=== PATIENT | female | born 1945 | race Caucasian/White ===

== ENCOUNTER → 2017-09-16 | Outpatient (CLI) | payer MEDICARE, OTHER | LOC: CARD 07:38 | PROVIDERS: ATTEND Internal Medicine Interventional Cardiology | DX: Z01.810 Encounter for preprocedural cardiovascular examination (principal); I10 Essential (primary) hypertension; E66.9 Obesity, unspecified; R06.02 Shortness of breath | CPT/HCPCS: 93306 ==

== ENCOUNTER → 2017-09-16 | Outpatient (CLI) | payer MEDICARE, OTHER ==
[~2017-09-16] MED LIST: REGADENOSON 0.4 MG/5 ML SYR (LEXISCAN) IV ONE
[2017-09-16] MEDS: CATHETER FLUSH 10 ML SYR IV PRN ×2 (08:06→09:35)
[2017-09-16 09:29] VITALS: BP 150/78
--- NOTE | 2017-09-16 22:04 | Cardiology Stress Test Report ---
Stress Test Report Type of NM Stress Test: Test Type: LEXISCAN 0.4MG/5ML Date of Procedure/Referring: Date of Procedure: Sep 16, 2017 PCP Keshawn Meehan MD Admitting Physician Sada Mata MD Indications: Shortness of breath, preoperative cardiovascular risk assessment Baseline Heart Rate: 60 Baseline Blood Pressure: Blood Pressure Systolic: 150 Blood Pressure Diastolic: 78 Baseline EKG: Baseline EKG: Sinus rhythm with occasional PACs. Summary: The patient was brought to the stress lab after informed consent was taken. Lexiscan stress test was performed according to the protocol. Low-grade exercise was performed. Baseline EKG showed sinus rhythm at 60 BPM. Blood pressure 150/78 mmHg. Maximum heart rate 111 BPM and blood pressure 165/68 mmHg. Patient did not have any chest pain, EKG changes or arrhythmias. 10.81 mCi of Myoview was given for rest imaging and 32.3 mCi of Myoview was given for stress imaging. Transient ischemic dilatation score 1.06. Ejection fraction 60 percent with normal wall motion. Normal perfusion during rest and stress imaging. Conclusion: Pharmacological stress test is negative for ischemia. Normal LV function with no wall motion abnormalities. Normal myocardial perfusion imaging. Keshawn MEEHAN MD Sep 16, 2017 10:04 pm
== END ==
LOC: CARD 07:36
PROVIDERS: ATTEND Internal Medicine Interventional Cardiology
DX: Z01.810 Encounter for preprocedural cardiovascular examination (principal); I10 Essential (primary) hypertension; E66.9 Obesity, unspecified; R06.02 Shortness of breath
CPT/HCPCS: 78452; 93017

== ENCOUNTER 2017-09-21 10:06 | Day surgery (SDC) | payer MEDICARE, OTHER ==
[~2017-09-21] VITALS: Ht 152.4 cm; Wt 64.0 kg
[2017-09-21] MEDS ORDERED: ceFAZolin 1 GM/NS 50 ML IVPB IV ONE ×2 (10:30)
[2017-09-21] MEDS ORDERED: CATHETER FLUSH 10 ML SYR IV PRN (10:30)
[2017-09-21] MEDS ORDERED: LACTATED RINGERS 1,000 ML IV PRN (10:56)
[2017-09-21] MEDS ORDERED: CITA20TA7 PO (10:57)
[2017-09-21] MEDS ORDERED: CLAR-19 PO (10:57)
[2017-09-21] MEDS ORDERED: CARV6.252 PO (10:57)
[2017-09-21] MEDS ORDERED: AMOX500T2 PO (10:57)
[2017-09-21] MEDS ORDERED: AMLO5TAB2 PO (10:57)
[2017-09-21] MEDS ORDERED: OMEP40CA36 PO (10:57)
[2017-09-21 10:59] VITALS: BP 137/66
[2017-09-21] MEDS ORDERED: FAMOTIDINE 20MG/2ML IV (PEPCID) IV ONE (11:00)
--- NOTE | 2017-09-21 11:32 | Progress Note-Pre Operative ---
Pre-Operative Progress Note H&P Reviewed The H&P was reviewed, patient examined and no changes noted. Date Seen by Provider: Sep 20, 2017 Time Seen by Provider: 16:10 Date H&P Reviewed: Sep 21, 2017 Time H&P Reviewed: 11:32 Pre-Operative Diagnosis: Rectal carcinoma KRISTAL SCHROEDER MD Sep 21, 2017 11:32 am
[2017-09-21] MEDS ORDERED: 0.9% SODIUM CHLORIDE PF INJ 20 ML VIAL ONE (12:27)
[2017-09-21] MEDS ORDERED: BUP/EPI 0.5% 1:200,000 (SENSORCAINE) 30 ML VIAL ONE (12:27)
[2017-09-21] MEDS ORDERED: HEParin (CENTRAL IV FLUSH) 500 UNIT/5 ML SYR ONE (12:27)
[2017-09-21] MEDS ORDERED: proPOfol 200 MG/20 ML (DIPRIVAN) VIAL IV ONE (13:27)
[2017-09-21] MEDS ORDERED: LIDOCAINE PF 2% 5 ML (XYLOCAINE) VIAL ONE (13:27)
[2017-09-21] MEDS ORDERED: SEVOFLURANE (ULTANE) 15 ML INHAL SOLN ONE ×2 (13:27→14:26)
[2017-09-21] MEDS ORDERED: fentaNYL INJECTION 100 MCG/2 ML AMP ONE (13:28)
[2017-09-21] MEDS ORDERED: DEXAMETHASONE 10 MG/ML (DECADRON) 1 ML VIAL ONE (13:30)
[2017-09-21] MEDS ORDERED: ONDANSETRON 4 MG/2 ML (SDV) Z0FRAN ONE (13:30)
--- NOTE | 2017-09-21 14:41 | Operative Report ---
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 In preparation for neoadjuvant chemoradiation, an Infuse-a- Port was felt to be appropriate. In addition, concomitant flexible sigmoidoscopy to assess the patency of the lumen prior to initiating therapy was felt to be reasonable. Informed consent was obtained after reviewing the procedures in detail. Description of the procedures: Vkskcr-e-Cuxh placement: She was placed supine on the operating table and general anesthesia induced. A gram of Ancef was administered intravenously as prophylaxis against wound infection. Sequential compression devices were placed around her legs, to minimize the risk of venous thrombosis. Her neck and upper chest were prepared and draped in the usual sterile manner. Right internal jugular vein was localized using a 12 MHz ultrasound probe and a floppy guidewire introduced into the heart under fluoroscopy a subcutaneous pocket was created over the infra-clavicular fossa and the virgen catheter brought into the neck, in a retrograde fashion. It was then advanced into the heart under fluoroscopy, using the peel-away sheath. The catheter was then pulled back to the superior vena cava under fluoroscopy and connected to the Oxzngd-o-Ekct, that had been primed with heparinized saline. I was able to aspirate and flush the system without any difficulty. The port was then secured to the pectoralis tissue using 2-0 Prolene sutures. The incision was then closed using 3-0 Vicryl for the subcutaneous tissue and 4-0 Vicryl for skin , in a subcuticular fashion. 0.5 percent Marcaine with epinephrine was infiltrated along the incision preemptively. A sterile dressing was then applied and we proceeded with flexible sigmoidoscopy. Flexible sigmoidoscopy: Digital rectal examination confirmed the tumor at the distal rectum. The proximal was sigmoscope was then introduced in the rectum and negotiated past the tumor to the mid sigmoid colon. The scope was then withdrawn slowly and a thorough examination performed The tumor extended from 9 cm from the anal verge up to 15 cm cephalad. It occupied three fourths of the circumference of the rectum and had an adequate lumen, facilitating the initiation of preoperative chemoradiation. Sigmoid diverticulosis was encountered as well. She tolerated the procedures well, was extubated in the operative room and taken to the recovery room in a stable condition. Findings of the Procedure see op report Allergies and Home Medications Allergies Coded Allergies: Sulfa (Sulfonamide Antibiotics) (Unverified Allergy, Severe, ANAPHYLAXIS, 09/21/17) PER PT Home Medications Amlodipine Besylate 5 Mg Tablet, 5 MG PO DAILY, (Reported) Amoxicillin 500 Mg Tablet, 500 MG PO BID, (Reported) Carvedilol 6.25 Mg Tablet, 6.25 MG PO HS, (Reported) Citalopram Hydrobromide 20 Mg Tablet, 20 MG PO DAILY, (Reported) Clarithromycin 500 Mg Tablet, 500 MG PO DAILY, (Reported) Omeprazole 40 Mg Capsule.dr, 40 MG PO DAILY, (Reported) KRISTAL SCHROEDER MD Sep 21, 2017 2:41 pm
--- NOTE | 2017-09-21 14:42 | Diagnostic Imaging Report ---
INDICATION: Groshong catheter placement. FINDINGS: Fluoroscopy was performed in the OR during performance of a Groshong catheter placement. 43 seconds of fluoroscopic time was utilized. Two images were obtained demonstrating a right Groshong catheter with tip overlying the SVC. IMPRESSION: Fluoroscopy for Groshong catheter placement. Dictated by: Dictated on workstation # [id number]
[2017-09-21] MEDS ORDERED: ACHD5005 PO (14:43)
--- NOTE | 2017-09-21 14:43 | Discharge Inst-Simple/Standard ---
Discharge Inst-Standard Discharge Medications New, Converted or Re-Newed RX: RX on Chart Patient Instructions/Follow Up Plan of Care/Instructions/FU: May use the port. Dressings off in 48 hours. To proceed with her oncology appointments, in preparation for preoperative chemoradiation Activity as Tolerated: Yes Discharge Diet: Soft Diet KRISTAL SCHROEDER MD Sep 21, 2017 2:43 pm
[2017-09-21] MEDS ORDERED: ONDANSETRON 4 MG/2 ML (SDV) Z0FRAN IVP PRN (14:45)
[2017-09-21] MEDS ORDERED: morphine INJ 10 MG/ML 1ML (SYR OR VIAL) IVP PRN (14:45)
[2017-09-21 15:30] VITALS: BP 124/64
[2017-09-21 16:00] VITALS: BP 108/63
[2017-09-21] MEDS ORDERED: HYDROcodone/APAP 5 MG/325 MG (LORTAB) TAB PO ONE (16:15)
[2017-09-21 16:30] VITALS: BP 130/55
[2017-09-21 16:45] VITALS: BP 130/55
== END 2017-09-21 16:45 | disposition home or self-care (01) ==
LOC: SDC 10:06
PROVIDERS: ATTEND Surgery
DX: C20 Malignant neoplasm of rectum (principal); K57.30 Diverticulosis of large intestine without perforation or abscess without bleeding; I10 Essential (primary) hypertension; K21.9 Gastro-esophageal reflux disease without esophagitis; Z79.82 Long term (current) use of aspirin; Z79.899 Other long term (current) drug therapy
CPT/HCPCS: 87081

== ENCOUNTER → 2017-09-21 | Outpatient (CLI) | payer MEDICARE, OTHER ==
[~2017-09-21] MED LIST changes: +ACHD5005 PO; +AMLO5TAB2 PO; +AMOX500T2 PO; +CARV6.252 PO; +CITA20TA7 PO; +CLAR-19 PO; +OMEP40CA36 PO; -REGADENOSON 0.4 MG/5 ML SYR (LEXISCAN) IV ONE
--- NOTE | 2017-09-21 14:06 | Diagnostic Imaging Report ---
INDICATION: Rectal carcinoma, initial staging. Patient's blood serum glucose level is 121 mg/dL at time of injection. The patient was administered 13.5 mCi of F-18 FDG intravenously in the right antecubital region and PET imaging was performed. In addition, noncontrast CT was performed for the purpose of anatomic correlation and attenuation correction. No prior studies are available for comparison. There is symmetric uptake of activity throughout the brain. No focal hypermetabolism is identified. Soft tissues of the neck are unremarkable. There is normal symmetric activity within the vocal cords. Imaging through the chest is without evidence of mediastinal or hilar hypermetabolism. There is activity within left rotator cuff musculature, likely physiologic. Imaging through the abdomen is without evidence of hypermetabolic focus. There is physiologic activity within the liver and spleen and bilateral urinary tracts. There is a physiologic GI tract activity. There is some activity in the left psoas musculature. Imaging through the pelvis does show intense hypermetabolism in the midline of the low pelvis, likely representing the patient's known rectal mass. This has SUV max of approximately 20. No definite perirectal foci of hypermetabolism are seen. The pelvic sidewalls are unremarkable. No iliac or inguinal hypermetabolism is seen. IMPRESSION: Intense FDG avidity in the known rectal mass, correlating with patient's known rectal carcinoma. No definite abdominal or pelvic metastatic disease is detected. No other significant abnormalities are seen. Dictated by: Dictated on workstation # [id number]
== END ==
LOC: RAD 08:00
PROVIDERS: ATTEND Surgery
DX: C20 Malignant neoplasm of rectum (principal)

== ENCOUNTER 2017-11-30 14:51 | Outpatient (RCR) | payer MEDICARE, OTHER ==
[2017-09-23 10:45] LABS: BASOPHILS % (AUTO) 0 % (0-10); EOSINOPHILS % (AUTO) 0 % (0-10); HEMATOCRIT 36 % (35-52); LYMPHOCYTES # (AUTO) 1.8 X 10^3 (1.0-4.0); LYMPHOCYTES % (AUTO) 13 % (12-44); MEAN CORPUSCULAR HEMOGLOBIN 31 PG (25-34); MEAN CORPUSCULAR HGB CONC 33 G/DL (32-36); MEAN CORPUSCULAR VOLUME 92 FL (80-99); MEAN PLATELET VOLUME 10.9 FL (7.4-10.4); MONOCYTES # (AUTO) 1.2 X 10^3 (0.0-1.0); MONOCYTES % (AUTO) 9 % (0-12); NEUTROPHILS # (AUTO) 10.9 X 10^3 (1.8-7.8); NEUTROPHILS % (AUTO) 78 % (42-75); PLATELET COUNT 290 10^3/uL (130-400); RED BLOOD COUNT 3.93 10^6/uL (4.35-5.85); RED CELL DISTRIBUTION WIDTH 13.4 % (10.0-14.5)
[2017-09-23 11:03] LABS: ALANINE AMINOTRANSFERASE 12 U/L (0-55); ALBUMIN 4.1 GM/DL (3.2-4.5); ALKALINE PHOSPHATASE 79 U/L (40-136); BILIRUBIN,TOTAL 0.5 MG/DL (0.1-1.0); BUN/CREATININE RATIO 18; CALCIUM 9.1 MG/DL (8.5-10.1); CARBON DIOXIDE 26 MMOL/L (21-32); CHLORIDE 105 MMOL/L (98-107); CREATININE SERUM 0.78 MG/DL (0.60-1.30); GFR ESTIMATED > 60; GLUCOSE 95 MG/DL (70-105); POTASSIUM 4.5 MMOL/L (3.6-5.0); SODIUM 141 MMOL/L (135-145); TOTAL PROTEIN 7.1 GM/DL (6.4-8.2)
[2017-10-11 15:29] LABS: BASOPHILS % (AUTO) 0 % (0-10); EOSINOPHILS # (AUTO) 0.1 10^3/uL (0.0-0.3); EOSINOPHILS % (AUTO) 3 % (0-10); HEMATOCRIT 36 % (35-52); HEMOGLOBIN 11.5 G/DL (11.5-16.0); LYMPHOCYTES # (AUTO) 1.3 X 10^3 (1.0-4.0); LYMPHOCYTES % (AUTO) 29 % (12-44); MEAN CORPUSCULAR HEMOGLOBIN 30 PG (25-34); MEAN CORPUSCULAR HGB CONC 32 G/DL (32-36); MEAN CORPUSCULAR VOLUME 92 FL (80-99); MEAN PLATELET VOLUME 9.3 FL (7.4-10.4); MONOCYTES # (AUTO) 0.4 X 10^3 (0.0-1.0); MONOCYTES % (AUTO) 10 % (0-12); NEUTROPHILS # (AUTO) 2.6 X 10^3 (1.8-7.8); NEUTROPHILS % (AUTO) 58 % (42-75); PLATELET COUNT 426 10^3/uL (130-400); RED BLOOD COUNT 3.88 10^6/uL (4.35-5.85); RED CELL DISTRIBUTION WIDTH 13.1 % (10.0-14.5); WHITE BLOOD COUNT 4.5 10^3/uL (4.3-11.0)
[2017-10-11 15:44] LABS: BUN/CREATININE RATIO 24; CALCIUM 8.5 MG/DL (8.5-10.1); CARBON DIOXIDE 23 MMOL/L (21-32); CHLORIDE 110 MMOL/L (98-107); CREATININE SERUM 0.67 MG/DL (0.60-1.30); GFR ESTIMATED > 60; GLUCOSE 80 MG/DL (70-105); POTASSIUM 3.9 MMOL/L (3.6-5.0); SODIUM 140 MMOL/L (135-145)
[2017-10-18 15:37] LABS: BASOPHILS % (AUTO) 0 % (0-10); EOSINOPHILS % (AUTO) 1 % (0-10); HEMATOCRIT 34 % (35-52); HEMOGLOBIN 11.4 G/DL (11.5-16.0); LYMPHOCYTES # (AUTO) 0.9 X 10^3 (1.0-4.0); LYMPHOCYTES % (AUTO) 22 % (12-44); MEAN CORPUSCULAR HEMOGLOBIN 30 PG (25-34); MEAN CORPUSCULAR HGB CONC 33 G/DL (32-36); MEAN CORPUSCULAR VOLUME 92 FL (80-99); MEAN PLATELET VOLUME 9.1 FL (7.4-10.4); MONOCYTES # (AUTO) 0.5 X 10^3 (0.0-1.0); MONOCYTES % (AUTO) 13 % (0-12); NEUTROPHILS # (AUTO) 2.6 X 10^3 (1.8-7.8); NEUTROPHILS % (AUTO) 64 % (42-75); PLATELET COUNT 241 10^3/uL (130-400); RED BLOOD COUNT 3.75 10^6/uL (4.35-5.85); WHITE BLOOD COUNT 4.1 10^3/uL (4.3-11.0)
[2017-10-18 15:54] LABS: BUN/CREATININE RATIO 22; CALCIUM 8.7 MG/DL (8.5-10.1); CARBON DIOXIDE 25 MMOL/L (21-32); CHLORIDE 108 MMOL/L (98-107); CREATININE SERUM 0.67 MG/DL (0.60-1.30); GFR ESTIMATED > 60; GLUCOSE 82 MG/DL (70-105); SODIUM 140 MMOL/L (135-145)
[2017-10-25 14:00] LABS: BASOPHILS % (AUTO) 0 % (0-10); EOSINOPHILS # (AUTO) 0.3 10^3/uL (0.0-0.3); EOSINOPHILS % (AUTO) 7 % (0-10); HEMATOCRIT 35 % (35-52); HEMOGLOBIN 12.1 G/DL (11.5-16.0); LYMPHOCYTES # (AUTO) 0.7 X 10^3 (1.0-4.0); LYMPHOCYTES % (AUTO) 16 % (12-44); MEAN CORPUSCULAR HEMOGLOBIN 31 PG (25-34); MEAN CORPUSCULAR HGB CONC 34 G/DL (32-36); MEAN CORPUSCULAR VOLUME 91 FL (80-99); MEAN PLATELET VOLUME 10.2 FL (7.4-10.4); MONOCYTES # (AUTO) 0.5 X 10^3 (0.0-1.0); MONOCYTES % (AUTO) 12 % (0-12); NEUTROPHILS # (AUTO) 2.8 X 10^3 (1.8-7.8); NEUTROPHILS % (AUTO) 65 % (42-75); PLATELET COUNT 184 10^3/uL (130-400); RED BLOOD COUNT 3.89 10^6/uL (4.35-5.85); RED CELL DISTRIBUTION WIDTH 15.4 % (10.0-14.5); WHITE BLOOD COUNT 4.3 10^3/uL (4.3-11.0)
[2017-10-25 14:17] LABS: ALANINE AMINOTRANSFERASE 14 U/L (0-55); ALBUMIN 3.6 GM/DL (3.2-4.5); ALKALINE PHOSPHATASE 105 U/L (40-136); BILIRUBIN,TOTAL 0.3 MG/DL (0.1-1.0); BUN/CREATININE RATIO 14; CALCIUM 8.7 MG/DL (8.5-10.1); CARBON DIOXIDE 26 MMOL/L (21-32); CHLORIDE 108 MMOL/L (98-107); CREATININE SERUM 0.69 MG/DL (0.60-1.30); GFR ESTIMATED > 60; GLUCOSE 84 MG/DL (70-105); MAGNESIUM 2.6 MG/DL (1.8-2.4); POTASSIUM 4.4 MMOL/L (3.6-5.0); SODIUM 140 MMOL/L (135-145); TOTAL PROTEIN 6.6 GM/DL (6.4-8.2)
[2017-11-09 14:11] LABS: BASOPHILS % (AUTO) 0 % (0-10); EOSINOPHILS # (AUTO) 0.2 10^3/uL (0.0-0.3); EOSINOPHILS % (AUTO) 6 % (0-10); HEMATOCRIT 36 % (35-52); LYMPHOCYTES # (AUTO) 0.6 X 10^3 (1.0-4.0); LYMPHOCYTES % (AUTO) 16 % (12-44); MEAN CORPUSCULAR HEMOGLOBIN 31 PG (25-34); MEAN CORPUSCULAR HGB CONC 33 G/DL (32-36); MEAN CORPUSCULAR VOLUME 92 FL (80-99); MEAN PLATELET VOLUME 8.9 FL (7.4-10.4); MONOCYTES # (AUTO) 0.6 X 10^3 (0.0-1.0); MONOCYTES % (AUTO) 15 % (0-12); NEUTROPHILS # (AUTO) 2.5 X 10^3 (1.8-7.8); NEUTROPHILS % (AUTO) 63 % (42-75); PLATELET COUNT 289 10^3/uL (130-400); RED CELL DISTRIBUTION WIDTH 15.9 % (10.0-14.5)
[2017-11-09 14:39] LABS: ALANINE AMINOTRANSFERASE 9 U/L (0-55); ALBUMIN 3.9 GM/DL (3.2-4.5); ALKALINE PHOSPHATASE 86 U/L (40-136); BILIRUBIN,TOTAL 0.4 MG/DL (0.1-1.0); BUN/CREATININE RATIO 15; CARBON DIOXIDE 29 MMOL/L (21-32); CHLORIDE 107 MMOL/L (98-107); CREATININE SERUM 0.68 MG/DL (0.60-1.30); GFR ESTIMATED > 60; GLUCOSE 84 MG/DL (70-105); POTASSIUM 4.1 MMOL/L (3.6-5.0); SODIUM 140 MMOL/L (135-145); TOTAL PROTEIN 6.6 GM/DL (6.4-8.2)
[~2017-11-30 14:51] MED LIST changes: -CITA20TA7 PO; +CITA20TA9 PO
== END 2017-12-22 | disposition home or self-care (01) ==
LOC: ONC 14:51
PROVIDERS: ATTEND Internal Medicine Hematology & Oncology
DX: Z51.0 Encounter for antineoplastic radiation therapy (principal); C20 Malignant neoplasm of rectum; I10 Essential (primary) hypertension; G62.9 Polyneuropathy, unspecified; K29.70 Gastritis, unspecified, without bleeding; K44.9 Diaphragmatic hernia without obstruction or gangrene; M47.9 Spondylosis, unspecified; Z79.82 Long term (current) use of aspirin; Z79.899 Other long term (current) drug therapy
CPT/HCPCS: 36415; 77300; 77301; 77334; 77336; 77338; 77386; 77470; 80048; 80053; 82378; 83735; 85025; 87804; 96523; 99204; 99213; 99214

== ENCOUNTER 2018-01-03 13:49 | Outpatient (RCR) | payer MEDICARE, OTHER ==
[2018-01-20] MEDS ORDERED: CYCL10TA9 PO (10:30)
[2018-01-21] MEDS ORDERED: ACHD5005 PO (10:16)
[2018-01-21] MEDS ORDERED: ENOX30DI9 SQ (10:17)
[2018-02-07 15:36] LABS: BASOPHILS % (AUTO) 0 % (0-10); EOSINOPHILS # (AUTO) 0.2 10^3/uL (0.0-0.3); EOSINOPHILS % (AUTO) 3 % (0-10); HEMATOCRIT 28 % (35-52); HEMOGLOBIN 8.7 G/DL (11.5-16.0); LYMPHOCYTES % (AUTO) 17 % (12-44); MEAN CORPUSCULAR HEMOGLOBIN 29 PG (25-34); MEAN CORPUSCULAR HGB CONC 31 G/DL (32-36); MEAN CORPUSCULAR VOLUME 93 FL (80-99); MEAN PLATELET VOLUME 8.4 FL (7.4-10.4); MONOCYTES # (AUTO) 0.6 X 10^3 (0.0-1.0); MONOCYTES % (AUTO) 11 % (0-12); NEUTROPHILS # (AUTO) 3.9 X 10^3 (1.8-7.8); NEUTROPHILS % (AUTO) 69 % (42-75); PLATELET COUNT 487 10^3/uL (130-400); RED CELL DISTRIBUTION WIDTH 13.8 % (10.0-14.5); WHITE BLOOD COUNT 5.6 10^3/uL (4.3-11.0)
[2018-02-07 16:00] LABS: ALANINE AMINOTRANSFERASE 7 U/L (0-55); ALBUMIN 3.5 GM/DL (3.2-4.5); ALKALINE PHOSPHATASE 87 U/L (40-136); BILIRUBIN,TOTAL 0.2 MG/DL (0.1-1.0); BUN/CREATININE RATIO 25; CALCIUM 8.8 MG/DL (8.5-10.1); CARBON DIOXIDE 25 MMOL/L (21-32); CHLORIDE 105 MMOL/L (98-107); CREATININE SERUM 0.72 MG/DL (0.60-1.30); GFR ESTIMATED > 60; GLUCOSE 113 MG/DL (70-105); POTASSIUM 3.8 MMOL/L (3.6-5.0); SODIUM 138 MMOL/L (135-145); TOTAL PROTEIN 6.2 GM/DL (6.4-8.2)
== END 2018-02-07 14:51 | disposition home or self-care (01) ==
LOC: ONC 13:49
PROVIDERS: ATTEND Internal Medicine Hematology & Oncology
DX: C20 Malignant neoplasm of rectum (principal); I10 Essential (primary) hypertension; G62.9 Polyneuropathy, unspecified; K29.70 Gastritis, unspecified, without bleeding; K44.9 Diaphragmatic hernia without obstruction or gangrene; M47.9 Spondylosis, unspecified; Z79.82 Long term (current) use of aspirin; Z79.899 Other long term (current) drug therapy; Z45.2 Encounter for adjustment and management of vascular access device
CPT/HCPCS: 80053; 85025; 85027; 96523

== ENCOUNTER 2018-01-12 05:31 | Outpatient (CLI) | payer MEDICARE, OTHER ==
[~2018-01-12] VITALS: Ht 152.4 cm; Wt 64.0 kg
[2018-01-21] MEDS ORDERED: ACHD5005 PO (10:16)
[2018-01-21] MEDS ORDERED: ENOX30DI9 SQ (10:17)
== END 2018-01-12 12:40 ==
LOC: PREOP 05:31
PROVIDERS: ATTEND Surgery
DX: Z01.818 Encounter for other preprocedural examination (principal); C20 Malignant neoplasm of rectum

== ENCOUNTER 2018-02-07 14:53 | Outpatient (RCR) | payer MEDICARE, OTHER ==
[~2018-02-07 14:53] MED LIST changes: +CYCL10TA9 PO; +ENOX30DI9 SQ
[2018-03-01 14:24] LABS: BASOPHILS % (AUTO) 0 % (0-10); EOSINOPHILS # (AUTO) 0.2 10^3/uL (0.0-0.3); EOSINOPHILS % (AUTO) 4 % (0-10); HEMATOCRIT 31 % (35-52); HEMOGLOBIN 9.8 G/DL (11.5-16.0); LYMPHOCYTES % (AUTO) 17 % (12-44); MEAN CORPUSCULAR HEMOGLOBIN 28 PG (25-34); MEAN CORPUSCULAR HGB CONC 32 G/DL (32-36); MEAN CORPUSCULAR VOLUME 88 FL (80-99); MONOCYTES # (AUTO) 0.6 X 10^3 (0.0-1.0); MONOCYTES % (AUTO) 10 % (0-12); NEUTROPHILS # (AUTO) 3.9 X 10^3 (1.8-7.8); NEUTROPHILS % (AUTO) 68 % (42-75); PLATELET COUNT 438 10^3/uL (130-400); RED BLOOD COUNT 3.51 10^6/uL (4.35-5.85); WHITE BLOOD COUNT 5.7 10^3/uL (4.3-11.0)
[2018-03-01 14:52] LABS: ALANINE AMINOTRANSFERASE 8 U/L (0-55); ALBUMIN 3.7 GM/DL (3.2-4.5); ALKALINE PHOSPHATASE 108 U/L (40-136); BILIRUBIN,TOTAL 0.2 MG/DL (0.1-1.0); BUN/CREATININE RATIO 16; CALCIUM 9.2 MG/DL (8.5-10.1); CARBON DIOXIDE 24 MMOL/L (21-32); CHLORIDE 108 MMOL/L (98-107); CREATININE SERUM 0.89 MG/DL (0.60-1.30); GFR ESTIMATED > 60; GLUCOSE 101 MG/DL (70-105); POTASSIUM 3.8 MMOL/L (3.6-5.0); SODIUM 141 MMOL/L (135-145); TOTAL PROTEIN 6.6 GM/DL (6.4-8.2)
== END 2018-03-01 14:01 | disposition home or self-care (01) ==
LOC: ONC 14:53
PROVIDERS: ATTEND Internal Medicine Hematology & Oncology
DX: C20 Malignant neoplasm of rectum (principal); I10 Essential (primary) hypertension; G62.9 Polyneuropathy, unspecified; K29.70 Gastritis, unspecified, without bleeding; K44.9 Diaphragmatic hernia without obstruction or gangrene; M47.9 Spondylosis, unspecified; Z79.82 Long term (current) use of aspirin; Z79.899 Other long term (current) drug therapy
CPT/HCPCS: 36415; 36591; 80053; 82378; 85025

== ENCOUNTER 2018-04-14 14:24 | Outpatient (RCR) | payer MEDICARE, OTHER ==
[2018-03-22 09:27] LABS: BASOPHILS % (AUTO) 0 % (0-10); EOSINOPHILS # (AUTO) 0.1 10^3/uL (0.0-0.3); EOSINOPHILS % (AUTO) 3 % (0-10); HEMATOCRIT 28 % (35-52); HEMOGLOBIN 9.1 G/DL (11.5-16.0); LYMPHOCYTES # (AUTO) 0.6 X 10^3 (1.0-4.0); LYMPHOCYTES % (AUTO) 14 % (12-44); MEAN CORPUSCULAR HEMOGLOBIN 28 PG (25-34); MEAN CORPUSCULAR HGB CONC 32 G/DL (32-36); MEAN CORPUSCULAR VOLUME 88 FL (80-99); MEAN PLATELET VOLUME 8.9 FL (7.4-10.4); MONOCYTES # (AUTO) 0.5 X 10^3 (0.0-1.0); MONOCYTES % (AUTO) 10 % (0-12); NEUTROPHILS # (AUTO) 3.4 X 10^3 (1.8-7.8); NEUTROPHILS % (AUTO) 73 % (42-75); PLATELET COUNT 332 10^3/uL (130-400); RED BLOOD COUNT 3.23 10^6/uL (4.35-5.85); RED CELL DISTRIBUTION WIDTH 16.2 % (10.0-14.5); WHITE BLOOD COUNT 4.6 10^3/uL (4.3-11.0)
[~2018-04-14 14:24] MED LIST changes: -AMLO5TAB2 PO; +AMLO5TAB7 PO
[2018-04-14 14:53] LABS: BASOPHILS % (AUTO) 0 % (0-10); EOSINOPHILS # (AUTO) 0.1 10^3/uL (0.0-0.3); EOSINOPHILS % (AUTO) 3 % (0-10); HEMATOCRIT 29 % (35-52); HEMOGLOBIN 9.2 G/DL (11.5-16.0); LYMPHOCYTES # (AUTO) 0.9 X 10^3 (1.0-4.0); LYMPHOCYTES % (AUTO) 22 % (12-44); MEAN CORPUSCULAR HGB CONC 32 G/DL (32-36); MEAN CORPUSCULAR VOLUME 88 FL (80-99); MEAN PLATELET VOLUME 9.1 FL (7.4-10.4); MONOCYTES # (AUTO) 0.5 X 10^3 (0.0-1.0); MONOCYTES % (AUTO) 12 % (0-12); NEUTROPHILS # (AUTO) 2.7 X 10^3 (1.8-7.8); NEUTROPHILS % (AUTO) 64 % (42-75); PLATELET COUNT 296 10^3/uL (130-400); RED BLOOD COUNT 3.23 10^6/uL (4.35-5.85); RED CELL DISTRIBUTION WIDTH 20.1 % (10.0-14.5); WHITE BLOOD COUNT 4.2 10^3/uL (4.3-11.0)
[2018-04-14 14:54] LABS: MEAN CORPUSCULAR HEMOGLOBIN 28 PG (25-34)
[2018-04-14 15:22] LABS: ALANINE AMINOTRANSFERASE 6 U/L (0-55); ALBUMIN 3.8 GM/DL (3.2-4.5); ALKALINE PHOSPHATASE 98 U/L (40-136); BILIRUBIN,TOTAL 0.4 MG/DL (0.1-1.0); BUN/CREATININE RATIO 18; CALCIUM 8.8 MG/DL (8.5-10.1); CARBON DIOXIDE 23 MMOL/L (21-32); CHLORIDE 105 MMOL/L (98-107); CREATININE SERUM 0.83 MG/DL (0.60-1.30); GFR ESTIMATED > 60; GLUCOSE 105 MG/DL (70-105); POTASSIUM 3.7 MMOL/L (3.6-5.0); SODIUM 137 MMOL/L (135-145); TOTAL PROTEIN 6.1 GM/DL (6.4-8.2)
[2018-05-05 13:56] LABS: BASOPHILS % (AUTO) 0 % (0-10); EOSINOPHILS # (AUTO) 0.1 10^3/uL (0.0-0.3); EOSINOPHILS % (AUTO) 3 % (0-10); HEMATOCRIT 30 % (35-52); HEMOGLOBIN 9.8 G/DL (11.5-16.0); LYMPHOCYTES # (AUTO) 0.8 X 10^3 (1.0-4.0); LYMPHOCYTES % (AUTO) 18 % (12-44); MEAN CORPUSCULAR HEMOGLOBIN 29 PG (25-34); MEAN CORPUSCULAR HGB CONC 33 G/DL (32-36); MEAN CORPUSCULAR VOLUME 89 FL (80-99); MEAN PLATELET VOLUME 8.8 FL (7.4-10.4); MONOCYTES # (AUTO) 0.6 X 10^3 (0.0-1.0); MONOCYTES % (AUTO) 14 % (0-12); NEUTROPHILS # (AUTO) 2.6 X 10^3 (1.8-7.8); NEUTROPHILS % (AUTO) 65 % (42-75); PLATELET COUNT 253 10^3/uL (130-400); RED BLOOD COUNT 3.33 10^6/uL (4.35-5.85); RED CELL DISTRIBUTION WIDTH 23.2 % (10.0-14.5); WHITE BLOOD COUNT 4.1 10^3/uL (4.3-11.0)
[2018-05-05 14:17] LABS: ALBUMIN 3.9 GM/DL (3.2-4.5); BILIRUBIN,TOTAL 0.5 MG/DL (0.1-1.0); CALCIUM 8.9 MG/DL (8.5-10.1); CREATININE SERUM 1.07 MG/DL (0.60-1.30); POTASSIUM 3.7 MMOL/L (3.6-5.0); TOTAL PROTEIN 6.7 GM/DL (6.4-8.2)
== END 2018-05-05 13:32 | disposition home or self-care (01) ==
LOC: ONC 14:24
PROVIDERS: ATTEND Internal Medicine Hematology & Oncology
DX: C20 Malignant neoplasm of rectum (principal); I10 Essential (primary) hypertension; I95.9 Hypotension, unspecified; R42 Dizziness and giddiness; G62.9 Polyneuropathy, unspecified; K29.70 Gastritis, unspecified, without bleeding; K44.9 Diaphragmatic hernia without obstruction or gangrene; M47.9 Spondylosis, unspecified; Z79.82 Long term (current) use of aspirin; Z79.899 Other long term (current) drug therapy; Z93.3 Colostomy status
CPT/HCPCS: 36415; 80053; 82378; 85025; 99213

== ENCOUNTER → 2018-05-10 | Outpatient (CLI) | payer MEDICARE, OTHER ==
--- NOTE | 2018-05-12 11:18 | Diagnostic Imaging Report ---
EXAM: PET/CT INDICATION: Rectal carcinoma TECHNIQUE: PET/CT imaging was obtained from the base of the skull through the pelvis after the administration of 13.7 mCi of F-[address] imaging was utilized for localization and attenuation correction purposes. The low energy CT utilized for attenuation correction is not considered to be of high enough spatial resolution to allow in and of itself a separate anatomical analysis. The previous PET/CT exam performed on 09/21/2017 noted intense FDG activity in the region of the patient's known rectal mass. There is no sign of metastatic disease, however. On this exam, the activity in the region of the rectum has diminished significantly. The maximum SUV in this area is now only 2.2 as opposed to 20 on the prior study. In the interval since the prior exam, a focal area of increased hypermetabolic activity has developed in the right lung base. However, the CT images fail to show any sign of a parenchymal mass in this area. The reason for the abnormal uptake is unclear. It is possible that this abnormal uptake could herald the development of a parenchymal mass and I do feel metastatic disease should certainly be considered. A short-term (4-6 week) followup CT chest exam would be recommended for further evaluation. There is no other hypermetabolic activity seen to suggest the presence of malignancy. The CT images fail to show any sign of an acute abnormality. There is cholelithiasis without evidence for acute cholecystitis. Also, in the interval since the prior exam, the patient has undergone resection of the rectal tumor and there is now an ostomy site in place near midline. IMPRESSION: 1. There are mixed results. The hypermetabolic activity in the region of the rectum has essentially resolved following the patient's interval colon resection. However, a new focus of abnormal activity has developed in the right lung base. There is no corresponding parenchymal lung mass identified in this region on the CT images, however. Recommendations as above. 2. The overall appearance of the PET/CT exam is otherwise stable. 3. These results were discussed with Dr. Cox. Dictated by: Dictated on workstation # [id number]
== END ==
LOC: RAD 08:24
PROVIDERS: ATTEND Internal Medicine Hematology & Oncology
DX: C20 Malignant neoplasm of rectum (principal); R97.0 Elevated carcinoembryonic antigen [CEA]

== ENCOUNTER → 2018-07-14 | Outpatient (CLI) | payer MEDICARE, OTHER ==
[~2018-07-14] MED LIST changes: +BARIUM SUSPENSION 2.1% (VANILLA SILQ) 450 ML PO ONE; +CATHETER FLUSH 10 ML SYR IV PRN; +IOHEXOL 350 MG/ML 100 ML (OMNIPAQUE 350) VIAL IV ONE; +NS 100 ML (IVPB) BAG IV ONE; +RECEIVED CONTRAST (Hold Metformin) IV SCH
--- NOTE | 2018-07-14 13:12 | Diagnostic Imaging Report ---
PROCEDURE: CT chest, abdomen, and pelvis with contrast. TECHNIQUE: Multiple contiguous axial images were obtained through the chest, abdomen, and pelvis after the administration of intravenous contrast. INDICATION: Colon cancer. Increased tumor markers. This is for restaging. COMPARISON: Exam interpreted in correlation with CT fusion PET dated 05/10/2018. CHEST: There is no evidence for lung mass. In particular at the level of the right lung base, no focal pulmonary parenchymal lesion is present to account for the area of hypermetabolism alerted to at previous PET. This will be discussed further in the abdominal section however that uptake is believed to have reflected incidental misregistration from a solid mass in the right hepatic lobe at the dome posteriorly likely hepatic metastasis. Again no suspicious lung nodule and no thoracic lymphadenopathy. No chest effusion. The aorta is nonaneurysmal. There is no acute soft tissue or osseous chest wall disease. ABDOMEN AND PELVIS: There is a low density but solid mass in the right hepatic lobe at the dome posteriorly measuring 1.6 cm believed to account for the area of abnormal uptake projecting at the level of the patient's right lower lung. That itself believed to be owing to misregistration artifact. This is presumed a hepatic metastatic lesion. A second minute right lobe lesion inferiorly is 3 mm and is indeterminate. That focus was metabolically imperceptible on PET and is of uncertain significance. The remaining liver is unremarkable. There is no bile duct dilatation. Spleen, adrenals and pancreas are unremarkable. There is a gallstone without cholecystitis. Left lower quadrant diverting ostomy without parastomal hernia or complication. Some fluid containing bowel loops pre-sacral in the pelvis with some presacral edema and infiltration on an expected postoperative basis. Pelvic sidewalls unremarkable and no ilioinguinal lymphadenopathy is apparent. There is no abscess, obstruction or hematoma. There is no pathological appearing abdominopelvic, mesenteric or retroperitoneal lymph nodes. The osseous structures nonacute. IMPRESSION: CHEST: No evidence for thoracic metastasis. ABDOMEN: Metabolically active mass in the right hepatic lobe at the dome posteriorly presumptively metastatic. Second tiny 3 mm right lobe liver lesion is more indeterminate and may be a tiny cyst. Cholelithiasis. Abdomen otherwise normal. PELVIS: Postsurgical changes to the rectum. Commonly encountered presacral induration on a post-therapeutic basis. No lymphadenopathy, fluid collection or obstructive phenomena. Dictated by: Dictated on workstation # [id number]
--- NOTE | 2018-07-14 17:43 | Diagnostic Imaging Report ---
INDICATION: Rectal cancer. TECHNIQUE: Whole body bone scan performed with 25.6 mCi of technetium 99m MDP given intravenously. COMPARISON: There is no prior bone scan for comparison. FINDINGS: There is increased uptake over both knee joints, compatible with degenerative change. There is some increased uptake over the midthoracic spine to the right of the midline, which could be degenerative change although metastatic disease is not entirely excluded. No other foci of abnormal activity are seen. Both kidneys excrete the tracer. IMPRESSION: Focal area of uptake over the midthoracic spine to the right of the midline, this is nonspecific and could represent metastatic disease or degenerative change. Consider MRI thoracic spine, if clinically warranted. There is increased uptake over both knees which is most likely degenerative in nature. There is no other significant abnormality. Dictated by: Dictated on workstation # [id number]
== END ==
LOC: CARD 11:38
PROVIDERS: ATTEND Internal Medicine Hematology & Oncology
DX: Z01.89 Encounter for other specified special examinations (principal); R97.0 Elevated carcinoembryonic antigen [CEA]; C20 Malignant neoplasm of rectum
CPT/HCPCS: 71260; 74177; 78306

== ENCOUNTER 2018-07-20 13:32 | Outpatient (RCR) | payer MEDICARE, OTHER ==
[2018-05-25 10:09] LABS: BASOPHILS % (AUTO) 1 % (0-10); EOSINOPHILS # (AUTO) 0.1 10^3/uL (0.0-0.3); EOSINOPHILS % (AUTO) 4 % (0-10); HEMATOCRIT 31 % (35-52); HEMOGLOBIN 10.1 G/DL (11.5-16.0); LYMPHOCYTES # (AUTO) 0.9 X 10^3 (1.0-4.0); LYMPHOCYTES % (AUTO) 22 % (12-44); MEAN CORPUSCULAR HEMOGLOBIN 30 PG (25-34); MEAN CORPUSCULAR HGB CONC 32 G/DL (32-36); MEAN CORPUSCULAR VOLUME 92 FL (80-99); MEAN PLATELET VOLUME 8.6 FL (7.4-10.4); MONOCYTES # (AUTO) 0.4 X 10^3 (0.0-1.0); MONOCYTES % (AUTO) 10 % (0-12); NEUTROPHILS # (AUTO) 2.5 X 10^3 (1.8-7.8); NEUTROPHILS % (AUTO) 64 % (42-75); PLATELET COUNT 304 10^3/uL (130-400); RED BLOOD COUNT 3.42 10^6/uL (4.35-5.85); RED CELL DISTRIBUTION WIDTH 25.5 % (10.0-14.5)
[2018-05-25 10:34] LABS: ALANINE AMINOTRANSFERASE 9 U/L (0-55); ALBUMIN 4.2 GM/DL (3.2-4.5); ALKALINE PHOSPHATASE 115 U/L (40-136); BILIRUBIN,TOTAL 0.9 MG/DL (0.1-1.0); BUN/CREATININE RATIO 16; CALCIUM 9.5 MG/DL (8.5-10.1); CARBON DIOXIDE 23 MMOL/L (21-32); CHLORIDE 105 MMOL/L (98-107); CREATININE SERUM 0.86 MG/DL (0.60-1.30); GFR ESTIMATED > 60; GLUCOSE 99 MG/DL (70-105); POTASSIUM 4.1 MMOL/L (3.6-5.0); SODIUM 140 MMOL/L (135-145); TOTAL PROTEIN 6.9 GM/DL (6.4-8.2)
[2018-06-15 10:11] LABS: BASOPHILS % (AUTO) 0 % (0-10); EOSINOPHILS # (AUTO) 0.1 10^3/uL (0.0-0.3); EOSINOPHILS % (AUTO) 3 % (0-10); HEMATOCRIT 31 % (35-52); LYMPHOCYTES # (AUTO) 0.8 X 10^3 (1.0-4.0); LYMPHOCYTES % (AUTO) 20 % (12-44); MEAN CORPUSCULAR HEMOGLOBIN 30 PG (25-34); MEAN CORPUSCULAR HGB CONC 32 G/DL (32-36); MEAN CORPUSCULAR VOLUME 95 FL (80-99); MONOCYTES # (AUTO) 0.4 X 10^3 (0.0-1.0); MONOCYTES % (AUTO) 11 % (0-12); NEUTROPHILS # (AUTO) 2.6 X 10^3 (1.8-7.8); NEUTROPHILS % (AUTO) 66 % (42-75); PLATELET COUNT 307 10^3/uL (130-400); RED BLOOD COUNT 3.31 10^6/uL (4.35-5.85); RED CELL DISTRIBUTION WIDTH 24.3 % (10.0-14.5); WHITE BLOOD COUNT 3.9 10^3/uL (4.3-11.0)
[2018-06-15 10:32] LABS: ALANINE AMINOTRANSFERASE 7 U/L (0-55); ALKALINE PHOSPHATASE 104 U/L (40-136); BILIRUBIN,TOTAL 0.5 MG/DL (0.1-1.0); BUN/CREATININE RATIO 23; CALCIUM 9.3 MG/DL (8.5-10.1); CARBON DIOXIDE 26 MMOL/L (21-32); CHLORIDE 109 MMOL/L (98-107); CREATININE SERUM 0.82 MG/DL (0.60-1.30); GFR ESTIMATED > 60; GLUCOSE 104 MG/DL (70-105); POTASSIUM 3.7 MMOL/L (3.6-5.0); SODIUM 141 MMOL/L (135-145); TOTAL PROTEIN 6.7 GM/DL (6.4-8.2)
[2018-07-06 09:54] LABS: BASOPHILS % (AUTO) 1 % (0-10); EOSINOPHILS # (AUTO) 0.1 10^3/uL (0.0-0.3); EOSINOPHILS % (AUTO) 3 % (0-10); HEMATOCRIT 31 % (35-52); HEMOGLOBIN 9.8 G/DL (11.5-16.0); LYMPHOCYTES # (AUTO) 0.9 X 10^3 (1.0-4.0); LYMPHOCYTES % (AUTO) 21 % (12-44); MEAN CORPUSCULAR HEMOGLOBIN 31 PG (25-34); MEAN CORPUSCULAR HGB CONC 32 G/DL (32-36); MEAN CORPUSCULAR VOLUME 98 FL (80-99); MONOCYTES # (AUTO) 0.5 X 10^3 (0.0-1.0); MONOCYTES % (AUTO) 12 % (0-12); NEUTROPHILS # (AUTO) 2.6 X 10^3 (1.8-7.8); NEUTROPHILS % (AUTO) 64 % (42-75); PLATELET COUNT 286 10^3/uL (130-400); RED BLOOD COUNT 3.16 10^6/uL (4.35-5.85); RED CELL DISTRIBUTION WIDTH 22.8 % (10.0-14.5); WHITE BLOOD COUNT 4.1 10^3/uL (4.3-11.0)
[2018-07-06 10:13] LABS: ALANINE AMINOTRANSFERASE 7 U/L (0-55); ALBUMIN 3.9 GM/DL (3.2-4.5); ALKALINE PHOSPHATASE 101 U/L (40-136); BILIRUBIN,TOTAL 0.5 MG/DL (0.1-1.0); BUN/CREATININE RATIO 20; CARBON DIOXIDE 26 MMOL/L (21-32); CHLORIDE 108 MMOL/L (98-107); CREATININE SERUM 0.79 MG/DL (0.60-1.30); GFR ESTIMATED > 60; GLUCOSE 97 MG/DL (70-105); POTASSIUM 3.9 MMOL/L (3.6-5.0); SODIUM 141 MMOL/L (135-145); TOTAL PROTEIN 6.4 GM/DL (6.4-8.2)
[~2018-07-20 13:32] MED LIST changes: -BARIUM SUSPENSION 2.1% (VANILLA SILQ) 450 ML PO ONE; -CATHETER FLUSH 10 ML SYR IV PRN; -IOHEXOL 350 MG/ML 100 ML (OMNIPAQUE 350) VIAL IV ONE; -NS 100 ML (IVPB) BAG IV ONE; -RECEIVED CONTRAST (Hold Metformin) IV SCH
== END 2018-08-03 | disposition home or self-care (01) ==
LOC: ONC 13:32
PROVIDERS: ATTEND Internal Medicine Hematology & Oncology
DX: C20 Malignant neoplasm of rectum (principal); I10 Essential (primary) hypertension; I95.9 Hypotension, unspecified; R42 Dizziness and giddiness; G62.9 Polyneuropathy, unspecified; K29.70 Gastritis, unspecified, without bleeding; K44.9 Diaphragmatic hernia without obstruction or gangrene; M47.9 Spondylosis, unspecified; Z79.82 Long term (current) use of aspirin; Z79.899 Other long term (current) drug therapy; Z93.3 Colostomy status
CPT/HCPCS: 36415; 36591; 80053; 82378; 85025; 99213

== ENCOUNTER 2018-08-15 06:53 | Outpatient (CLI) | payer MEDICARE, OTHER ==
[~2018-08-15] VITALS: Ht 152.4 cm; Wt 64.0 kg
[2018-08-15] VITALS (19 sets, daily range): BP systolic 117–170; BP diastolic 58–94
[2018-08-15 07:26] LABS: HEMOGLOBIN 9.9 G/DL (11.5-16.0); MEAN PLATELET VOLUME 8.7 FL (7.4-10.4); RED BLOOD COUNT 3.44 10^6/uL (4.35-5.85); RED CELL DISTRIBUTION WIDTH 18.7 % (10.0-14.5); WHITE BLOOD COUNT 4.7 10^3/uL (4.3-11.0)
[2018-08-15 07:46] LABS: INR 1.1 (0.8-1.4); PROTHROMBIN TIME PATIENT 13.7 SEC (12.2-14.7)
[2018-08-15] MEDS ORDERED: NS IV 1000 ML 1,000 ML IV STA (08:34)
[2018-08-15] MEDS ORDERED: NS IV 1000 ML 1,000 ML ONE (08:35)
[2018-08-15] MEDS ORDERED: MIDAZOLAM 2 MG/2 ML (VERSED) VIAL ONE (08:35)
[2018-08-15] MEDS ORDERED: LIDOCAINE 1% INJ 20 ML 20 ML VIAL ONE (08:35)
[2018-08-15] MEDS ORDERED: fentaNYL INJECTION 100 MCG/2 ML AMP ONE (08:35)
[2018-08-15] MEDS ORDERED: LIDOCAINE 1% INJ 20 ML 20 ML VIAL INJ ONE (08:45)
[2018-08-15] MEDS ORDERED: MIDAZOLAM 2 MG/2 ML (VERSED) VIAL IVP ONE (08:45)
[2018-08-15] MEDS ORDERED: fentaNYL INJECTION 100 MCG/2 ML AMP IVP ONE (08:45)
[2018-08-15] MEDS ORDERED: HYDROcodone/APAP 5 MG/325 MG (LORTAB) TAB PO PRN (09:45)
--- NOTE | 2018-08-15 10:12 | Pre-Op Note & Conscious Sedat ---
Pre-Operative Progress Note H&P Reviewed The H&P was reviewed, patient examined and no changes noted. Date H&P Reviewed: Aug 15, 2018 Time H&P Reviewed: 08:00 Pre-Op Diagnosis: Liver mass Conscious Sedation Pre-Proced Time 08:00 ASA Score 2 For ASA 3 and 4: Consider anesthesia and medical clearance. Also, for patients with a history of failed moderate sedation consider anesthesia. Airway Lungs Heart ASA score ASA 1: a normal healthy patient ASA 2: a patient with a mild systemic disease (mid diabetes, controlled hypertension, obesity ASA 3: a patient with a severe systemic disease that limits activity (angina , COPD, prior Myocardial infarction) ASA 4: a patient with an incapacitating disease that is a constant threat to life (CHF, renal failure) ASA 5: a moribund patient not expected to survive 24 hrs. (ruptured aneurysm) ASA 6: a declared brain patient whose organs are being harvested. For emergent operations, add the letter E after the classification Mallampati Classification Grade 2 Sedation Plan Analgesia, Amnesia, Plan communicated to team members, Discussed options with patient/fam, Discussed risks with patient/fam The patient is an appropriate candidate to undergo the planned procedure, sedation, and anesthesia. The patient immediately re-assessed prior to indication. JUVENAL MARTÍNEZ MD Aug 15, 2018 10:12
--- NOTE | 2018-08-15 11:02 | Diagnostic Imaging Report ---
Indication: Colorectal carcinoma and liver mass. Patient presents for CT-guided biopsy. The patient was brought to the CT suite and placed on table in the left side down decubitus position. Axial imaging through the abdomen was performed to evaluate appropriate entry site. The procedure was performed with conscious sedation with radiology nursing and constant patient monitoring. A right abdomen was prepped and draped in usual sterile fashion. Small amount of 1% lidocaine was utilized for local anesthesia. Patient was administered 25 mg of fentanyl intravenously. Total procedure time was 10 minutes. An 18-gauge coaxial Temno needle was advanced to the dome of the right lobe of the liver. Needle tip was positioned adjacent to the low-density mass near the dome of the right lobe. Total of four core biopsies were obtained. Blood patch was administered during removal of the needle. Hemostasis obtained using manual compression. Followup imaging shows no complicating features. No definite pneumothorax is seen. Impression: CT-guided right lobe liver mass biopsy. The pathology results are currently pending. Dictated by: Dictated on workstation # [id number]
== END 2018-08-15 13:40 | disposition home or self-care (01) ==
LOC: SDC 06:53
PROVIDERS: ATTEND Internal Medicine Hematology & Oncology
DX: C78.7 Secondary malignant neoplasm of liver and intrahepatic bile duct (principal); C20 Malignant neoplasm of rectum; Z93.3 Colostomy status; Z79.899 Other long term (current) drug therapy
CPT/HCPCS: 36415; 77012; 85027; 85610; 85730

== ENCOUNTER 2018-08-25 09:10 | Outpatient (RCR) | payer MEDICARE, OTHER ==
[~2018-08-25 09:10] MED LIST changes: -AMLO5TAB7 PO; +AMLO5TAB9 PO
[2018-08-25 09:30] LABS: BASOPHILS % (AUTO) 1 % (0-10); EOSINOPHILS # (AUTO) 0.1 10^3/uL (0.0-0.3); EOSINOPHILS % (AUTO) 3 % (0-10); HEMATOCRIT 34 % (35-52); HEMOGLOBIN 10.7 G/DL (11.5-16.0); LYMPHOCYTES # (AUTO) 0.9 X 10^3 (1.0-4.0); LYMPHOCYTES % (AUTO) 18 % (12-44); MEAN CORPUSCULAR HEMOGLOBIN 29 PG (25-34); MEAN CORPUSCULAR HGB CONC 32 G/DL (32-36); MEAN CORPUSCULAR VOLUME 92 FL (80-99); MEAN PLATELET VOLUME 9.1 FL (7.4-10.4); MONOCYTES # (AUTO) 0.5 X 10^3 (0.0-1.0); MONOCYTES % (AUTO) 10 % (0-12); NEUTROPHILS # (AUTO) 3.4 X 10^3 (1.8-7.8); NEUTROPHILS % (AUTO) 69 % (42-75); PLATELET COUNT 340 10^3/uL (130-400); RED CELL DISTRIBUTION WIDTH 18.6 % (10.0-14.5)
[2018-08-25 09:52] LABS: ALANINE AMINOTRANSFERASE 8 U/L (0-55); ALKALINE PHOSPHATASE 101 U/L (40-136); BILIRUBIN,TOTAL 0.5 MG/DL (0.1-1.0); BUN/CREATININE RATIO 23; CALCIUM 9.1 MG/DL (8.5-10.1); CARBON DIOXIDE 24 MMOL/L (21-32); CHLORIDE 106 MMOL/L (98-107); CREATININE SERUM 0.86 MG/DL (0.60-1.30); GFR ESTIMATED > 60; GLUCOSE 89 MG/DL (70-105); POTASSIUM 4.1 MMOL/L (3.6-5.0); SODIUM 138 MMOL/L (135-145); TOTAL PROTEIN 6.9 GM/DL (6.4-8.2)
== END 2018-11-03 | disposition home or self-care (01) ==
LOC: ONC 09:10
PROVIDERS: ATTEND Internal Medicine Hematology & Oncology
DX: C20 Malignant neoplasm of rectum (principal); I10 Essential (primary) hypertension; I95.9 Hypotension, unspecified; R42 Dizziness and giddiness; G62.9 Polyneuropathy, unspecified; K29.70 Gastritis, unspecified, without bleeding; K44.9 Diaphragmatic hernia without obstruction or gangrene; M47.9 Spondylosis, unspecified; Z79.82 Long term (current) use of aspirin; Z79.899 Other long term (current) drug therapy; Z93.3 Colostomy status
CPT/HCPCS: 36591; 80053; 82378; 85025; 99213

== ENCOUNTER 2018-11-09 10:12 | Outpatient (RCR) | payer MEDICARE, OTHER ==
[2018-11-09 10:25] LABS: BASOPHILS % (AUTO) 0 % (0-10); EOSINOPHILS # (AUTO) 0.1 10^3/uL (0.0-0.3); EOSINOPHILS % (AUTO) 2 % (0-10); HEMATOCRIT 36 % (35-52); HEMOGLOBIN 11.4 G/DL (11.5-16.0); LYMPHOCYTES # (AUTO) 0.9 X 10^3 (1.0-4.0); LYMPHOCYTES % (AUTO) 16 % (12-44); MEAN CORPUSCULAR HEMOGLOBIN 27 PG (25-34); MEAN CORPUSCULAR HGB CONC 32 G/DL (32-36); MEAN CORPUSCULAR VOLUME 86 FL (80-99); MEAN PLATELET VOLUME 9.3 FL (7.4-10.4); MONOCYTES # (AUTO) 0.6 X 10^3 (0.0-1.0); MONOCYTES % (AUTO) 10 % (0-12); NEUTROPHILS # (AUTO) 3.9 X 10^3 (1.8-7.8); NEUTROPHILS % (AUTO) 71 % (42-75); PLATELET COUNT 320 10^3/uL (130-400); RED CELL DISTRIBUTION WIDTH 16.5 % (10.0-14.5); WHITE BLOOD COUNT 5.4 10^3/uL (4.3-11.0)
[2018-11-09 10:42] LABS: ALANINE AMINOTRANSFERASE 13 U/L (0-55); ALKALINE PHOSPHATASE 112 U/L (40-136); BILIRUBIN,TOTAL 0.4 MG/DL (0.1-1.0); BUN/CREATININE RATIO 25; CALCIUM 9.5 MG/DL (8.5-10.1); CARBON DIOXIDE 26 MMOL/L (21-32); CHLORIDE 107 MMOL/L (98-107); CREATININE SERUM 0.81 MG/DL (0.60-1.30); GFR ESTIMATED > 60; GLUCOSE 97 MG/DL (70-105); POTASSIUM 4.5 MMOL/L (3.6-5.0); SODIUM 140 MMOL/L (135-145); TOTAL PROTEIN 6.8 GM/DL (6.4-8.2)
== END 2019-02-07 | disposition home or self-care (01) ==
LOC: ONC 10:12
PROVIDERS: ATTEND Internal Medicine Hematology & Oncology
DX: C78.7 Secondary malignant neoplasm of liver and intrahepatic bile duct (principal); C20 Malignant neoplasm of rectum; Z93.3 Colostomy status; Z79.899 Other long term (current) drug therapy
CPT/HCPCS: 36415; 80053; 85025; 99213

== ENCOUNTER → 2018-11-17 | Outpatient (CLI) | payer MEDICARE, OTHER ==
[~2018-11-17] MED LIST changes: +HOLD METFORMIN - RECEIVED CONTRAST 20 ML VIAL IV SCH; +IOHEXOL 350 MG/ML 100 ML (OMNIPAQUE 350) VIAL IV ONE
--- NOTE | 2018-11-17 13:34 | Diagnostic Imaging Report ---
PROCEDURE: CT abdomen with and without contrast. TECHNIQUE: Multiple contiguous axial CT images of the abdomen were obtained prior to and after intravenous administration of iodinated contrast. Auto Exposure Controls were utilized during the CT exam to meet ALARA standards for radiation dose reduction. INDICATION: Liver metastases. Patient is status post liver ablation in September. Study is performed for followup. Correlation is made with prior CT from 07/14/2018. FINDINGS: The lung bases are clear. Tiny lesion in the inferior right lobe of liver appears to be fairly stable at 3-4 mm. The more dominant lesion more cephalad in the right lobe is measuring larger at approximately 2.1 cm compared with 1.7 cm. Now immediately anterior to this is a more cystic-appearing lesion with linear tract extending inferiorly and anteriorly, perhaps the ablation tract. The dominant portion of this cystic lesion measures 2.7 cm and is likely post-therapeutic. No new liver lesion is identified. There is no biliary ductal dilatation. The gallbladder contains a small stone. The pancreas and spleen are unremarkable. No adrenal mass is seen. Kidneys are unremarkable. Aorta is calcified but nonaneurysmal. There is no central retroperitoneal or mesenteric lymphadenopathy detected. There is an ostomy in the anterior left para-midline. Bowel loops are nondilated. There is no ascites. IMPRESSION: Dominant right lobe liver mass does measure slightly larger on today's study compared with exam from 07/14/2018. There are post-ablation changes adjacent to this in the right lobe of liver as well. No new liver lesion is identified. No abdominal lymphadenopathy is detected. Dictated by: Dictated on workstation # [id number]
== END ==
LOC: RAD 12:35
DX: C78.7 Secondary malignant neoplasm of liver and intrahepatic bile duct (principal); C18.9 Malignant neoplasm of colon, unspecified
CPT/HCPCS: 74170

== ENCOUNTER → 2019-02-08 | Outpatient (CLI) | payer MEDICARE, OTHER ==
[~2019-02-08] MED LIST changes: +CATHETER FLUSH 10 ML SYR IV PRN; +NS 100 ML (IVPB) BAG IV ONE
--- NOTE | 2019-02-08 14:11 | Diagnostic Imaging Report ---
PROCEDURE: CT abdomen with contrast only. TECHNIQUE: Multiple contiguous axial images were obtained through the abdomen after the administration of intravenous contrast. Auto Exposure Controls were utilized during the CT exam to meet ALARA standards for radiation dose reduction. INDICATION: Rectal cancer and liver metastases. COMPARISON: Comparison is made with prior CT from 11/17/2018. FINDINGS: Lung bases are clear. Previously noted tiny low-density lesion right lobe of the liver is stable at 4 mm. Post therapeutic changes from ablation in the right lobe of the liver is again noted. Tract in the right lobe is noted. The low-density lesions right lobe of liver are again noted. The more anterior cystic lesion is decreased in size at 2.2 cm, compared with 2.7 cm. The more posterior lesion does measure larger at 2.6 cm compared with 2.1 cm. No new mass is seen. Gallbladder is unremarkable. Pancreas and spleen are unremarkable. No adrenal mass is seen. Kidneys are unremarkable. Aorta is non-aneurysmal. There appears to be an ostomy in the left paramidline of the lower abdomen. There is no ascites. IMPRESSION: The more posterior lesion in the right lobe of the liver is measuring slightly larger on today's study when compared with October 2018. Anterior component has decreased in size. The tiny lesion inferiorly right lobe is stable. No new liver mass is detected. Dictated by: Dictated on workstation # [id number]
== END ==
LOC: RAD 10:29
PROVIDERS: ATTEND Internal Medicine Hematology & Oncology
DX: C20 Malignant neoplasm of rectum (principal); C78.7 Secondary malignant neoplasm of liver and intrahepatic bile duct
CPT/HCPCS: 74160

== ENCOUNTER 2019-03-29 13:18 | Outpatient (RCR) | payer MEDICARE, OTHER ==
[2019-02-08 10:36] LABS: INR 0.9 (0.8-1.4); PROTHROMBIN TIME PATIENT 12.8 SEC (12.2-14.7)
[2019-02-08 12:01] LABS: BASOPHILS % (AUTO) 0 % (0-10); EOSINOPHILS # (AUTO) 0.1 10^3/uL (0.0-0.3); EOSINOPHILS % (AUTO) 2 % (0-10); HEMATOCRIT 37 % (35-52); HEMOGLOBIN 11.9 G/DL (11.5-16.0); LYMPHOCYTES # (AUTO) 1.2 X 10^3 (1.0-4.0); LYMPHOCYTES % (AUTO) 22 % (12-44); MEAN CORPUSCULAR HEMOGLOBIN 28 PG (25-34); MEAN CORPUSCULAR HGB CONC 32 G/DL (32-36); MEAN CORPUSCULAR VOLUME 88 FL (80-99); MEAN PLATELET VOLUME 8.9 FL (7.4-10.4); MONOCYTES # (AUTO) 0.5 X 10^3 (0.0-1.0); MONOCYTES % (AUTO) 9 % (0-12); NEUTROPHILS # (AUTO) 3.4 X 10^3 (1.8-7.8); NEUTROPHILS % (AUTO) 67 % (42-75); PLATELET COUNT 282 10^3/uL (130-400); RED CELL DISTRIBUTION WIDTH 15.8 % (10.0-14.5); WHITE BLOOD COUNT 5.2 10^3/uL (4.3-11.0)
[2019-02-08 12:26] LABS: ALANINE AMINOTRANSFERASE 11 U/L (0-55); ALKALINE PHOSPHATASE 128 U/L (40-136); BILIRUBIN,TOTAL 0.4 MG/DL (0.1-1.0); BUN/CREATININE RATIO 17; CALCIUM 9.1 MG/DL (8.5-10.1); CARBON DIOXIDE 26 MMOL/L (21-32); CHLORIDE 106 MMOL/L (98-107); CREATININE SERUM 0.78 MG/DL (0.60-1.30); GFR ESTIMATED > 60; GLUCOSE 86 MG/DL (70-105); POTASSIUM 4.2 MMOL/L (3.6-5.0); SODIUM 141 MMOL/L (135-145); TOTAL PROTEIN 6.7 GM/DL (6.4-8.2)
[~2019-03-29 13:18] MED LIST changes: -CATHETER FLUSH 10 ML SYR IV PRN; -HOLD METFORMIN - RECEIVED CONTRAST 20 ML VIAL IV SCH; -IOHEXOL 350 MG/ML 100 ML (OMNIPAQUE 350) VIAL IV ONE; -NS 100 ML (IVPB) BAG IV ONE
== END 2019-05-09 | disposition home or self-care (01) ==
LOC: ONC 13:18
PROVIDERS: ATTEND Internal Medicine Hematology & Oncology
DX: C78.7 Secondary malignant neoplasm of liver and intrahepatic bile duct (principal); C20 Malignant neoplasm of rectum; Z93.3 Colostomy status; Z79.899 Other long term (current) drug therapy
CPT/HCPCS: 36415; 80053; 82378; 85025; 85610; 96523

== ENCOUNTER → 2019-05-11 | Outpatient (CLI) | payer MEDICARE, OTHER ==
[~2019-05-11] MED LIST changes: +PRD20T PO
[2019-05-11 11:05] LABS: BUN/CREATININE RATIO 24; CALCIUM 8.9 MG/DL (8.5-10.1); CARBON DIOXIDE 27 MMOL/L (21-32); CHLORIDE 108 MMOL/L (98-107); CREATININE SERUM 0.75 MG/DL (0.60-1.30); GFR ESTIMATED > 60; GLUCOSE 83 MG/DL (70-105); POTASSIUM 4.2 MMOL/L (3.6-5.0); SODIUM 142 MMOL/L (135-145)
== END ==
LOC: LAB 10:30
PROVIDERS: ATTEND Family Medicine
DX: M62.838 Other muscle spasm (principal)
CPT/HCPCS: 36415; 80048; 82728; 83540; 84100

== ENCOUNTER → 2019-05-11 | Outpatient (CLI) | payer MEDICARE, OTHER ==
[~2019-05-11] MED LIST changes: +HOLD METFORMIN - RECEIVED CONTRAST 20 ML VIAL IV SCH; -PRD20T PO
[2019-05-11] MEDS: IOHEXOL 350 MG/ML 100 ML (OMNIPAQUE 350) VIAL IV ONE (11:23)
[2019-05-11] MEDS: CATHETER FLUSH 10 ML SYR IV PRN (11:23)
[2019-05-11] MEDS: NS 100 ML (IVPB) BAG IV ONE (11:23)
--- NOTE | 2019-05-11 12:09 | Diagnostic Imaging Report ---
PROCEDURE: CT abdomen with and without contrast. TECHNIQUE: Multiple contiguous axial CT images of the abdomen were obtained prior to and after intravenous administration of iodinated contrast. Auto Exposure Controls were utilized during the CT exam to meet ALARA standards for radiation dose reduction. INDICATION: Rectal carcinoma and prior liver ablation. The study is performed for follow up. COMPARISON: Correlation is made with prior CT from 02/08/2019. FINDINGS: The lung bases are clear. Tiny low-density lesion in the inferior right lobe of the liver is stable at 4 to 5 mm. Post-ablation changes, more cephalad in the right lobe of the liver, are again noted. The anterior component is stable at 1.9 cm compared with 2.2 cm. The more posterior component is 2.2 cm compared with 2.6 cm. No new liver mass is detected. There appear to be small stones within the gallbladder. No biliary ductal dilatation is seen. The pancreas and spleen are unremarkable. No adrenal mass is detected. Kidneys are unremarkable. Aorta is nonaneurysmal. No central retroperitoneal or mesenteric lymphadenopathy is seen. Left paramidline ostomy is again seen. There is no ascites. Degenerative changes throughout the lumbar spine are noted. IMPRESSION: Stable CT abdomen with and without contrast when compared with examination from 02/08/2019. Post-therapeutic changes in the right lobe of the liver are again noted, stable to perhaps slightly decreased when compared with prior exam. No new abnormality is detected. Dictated by: Dictated on workstation # [id number]
== END ==
LOC: RAD 10:50
PROVIDERS: ATTEND Internal Medicine Hematology & Oncology
DX: C20 Malignant neoplasm of rectum (principal); C78.7 Secondary malignant neoplasm of liver and intrahepatic bile duct; Z98.890 Other specified postprocedural states
CPT/HCPCS: 74170

== ENCOUNTER 2019-05-16 15:16 | Emergency (ER) | payer MEDICARE, OTHER ==
[~2019-05-16] VITALS: Ht 152 cm; Wt 60.0 kg
[~2019-05-16 15:16] MED LIST changes: -HOLD METFORMIN - RECEIVED CONTRAST 20 ML VIAL IV SCH
--- NOTE | 2019-05-16 16:38 | Diagnostic Imaging Report ---
INDICATION: Multiple falls with low back pain radiating to the left leg. TIME OF EXAM 4:24 PM EXAM: AP view of the pelvis and 2 views of the right hip were obtained. FINDINGS: There is normal femoral acetabular alignment. There are significant osteoarthritic changes of the right hip, joint space narrowing and marginal spurring. No fracture is seen within either hip. The rami are intact. IMPRESSION: Degenerative changes. No acute bony abnormality is detected. Dictated by: Dictated on workstation # [id number]
[2019-05-16] MEDS ORDERED: KETOROLAC 30 MG/ML VIAL IM ONE (17:45)
[2019-05-16] MEDS ORDERED: HYDROcodone/APAP 5 MG/325 MG (LORTAB) TAB PO ONE (17:45)
--- NOTE | 2019-05-16 17:54 | ED Lower Extremity ---
General Chief Complaint: Trauma-Non Activation Stated Complaint: FALL/RT HIP PAIN Nursing Triage Note: Patient brought to ER via wheelchair with complaint of right hip pain. Patient states she has had multiple recent falls within the last week. Last night she fell and was able to get herself up but has not been able to ambulate on the right leg today. Patient states last night she also had pain to the posterior neck between her shoulder blades. The pain lasted for only a few minutes and she has not had the pain since. Nursing Sepsis Screen: No Definite Risk Source: patient Exam Limitations: no limitations History of Present Illness Date Seen by Provider: May 16, 2019 Time Seen by Provider: 17:52 Initial Comments To ER with complaints of right posterior hip pain radiates down the right leg terminating at the knee. This is been ongoing for a couple of months getting worse and contributing to falls because of pain and weakness in the right leg. 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 She's been having some spasms in her lower neck posteriorly between her shoulder blades that takes her breath away and then completely resolves. This lasts for a few seconds at time and has happened 3 or 4 times a day. She has not reinjured her neck during any of the falls she is aware of and has not hit her head. Onset: just prior to arrival Severity: moderate Pain/Injury Location: right hip, right leg Method of Injury: fell Modifying Factors: Improves With Movement Allergies and Home Medications Allergies Coded Allergies: Sulfa (Sulfonamide Antibiotics) (Unverified Allergy, Severe, ANAPHYLAXIS, 01/12/18) PER PT Home Medications Amlodipine Besylate 5 Mg Tablet, 5 MG PO DAILY, (Reported) Carvedilol 6.25 Mg Tablet, 6.25 MG PO HS, (Reported) Citalopram Hydrobromide 20 Mg Tablet, 20 MG PO DAILY, (Reported) Cyclobenzaprine HCl 10 Mg Tablet, 10 MG PO TID PRN for MUSCLE SPASMS, (Reported) Enoxaparin Sodium 30 Mg/0.3 Ml Syringe, 30 MG SQ DAILY Prescribed by: KRISTAL SCHROEDER on 01/21/18 1017 Hydrocodone Bit/Acetaminophen 1 Tab Tab, 1-2 TAB PO 4-6HR PRN for PAIN Prescribed by: KRISTAL SCHROEDER on 01/21/18 1016 Omeprazole 40 Mg Capsule., 40 MG PO DAILY, (Reported) Patient Home Medication List Home Medication List Reviewed: Yes Review of Systems Constitutional: see HPI EENTM: see HPI Respiratory: no symptoms reported Cardiovascular: no symptoms reported Genitourinary: no symptoms reported Musculoskeletal: no symptoms reported Skin: no symptoms reported Psychiatric/Neurological: No Symptoms Reported Past Athduar-Qwiape-Qfjvvk Hx Patient Social History Alcohol Use: Denies Use Recreational Drug Use: No Smoking Status: Never a Smoker 2nd Hand Smoke Exposure: No Recent Foreign Travel: No Contact w/Someone Who Travel: No Recent Infectious Disease Expo: No Recent Hopitalizations: No Immunizations Up To Date Tetanus Booster (TDap): Unknown Seasonal Allergies Seasonal Allergies: No Past Medical History Surgeries: Yes (RUPTURED OVARIAN CYST, NECK SX, colostomy, liver ablasions) Appendectomy, Orthopedic Respiratory: No Cardiac: Yes Hypertension Neurological: No Reproductive Disorders: No Sexually Transmitted Disease: No Genitourinary: No Gastrointestinal: Yes (GASRTITIS) Hiatal Hernia Musculoskeletal: Yes Arthritis, Back Injury Endocrine: No HEENT: Yes (GLASSES) Loss of Vision: Bilateral Hearing Impairment: Denies Cancer: Yes Colon Did You Recieve Any Treatments: Yes What Type of Treatment Did You: Chemotherapy, Radiation, Surgical Intervention Psychosocial: Yes (SITUATIONAL- ) Depression Integumentary: No Blood Disorders: No Adverse Reaction/Blood Tranf: No Physical Exam Vital Signs Vital Signs - First Documented 05/16/19 15:59 Temp 35.2 Pulse 106 Resp 18 B/P (MAP) 148/83 (104) Pulse Ox 96 O2 Delivery Room Air Capillary Refill : Less Than 3 Seconds Height, Weight, BMI Height: 5'0.00" Weight: 141lbs. 0.0oz. [id number]; 25.00 BMI Method: General Appearance: WD/WN, no apparent distress HEENT: PERRL/EOMI, normal ENT inspection Neck: non-tender, full range of motion Respiratory: normal breath sounds, no respiratory distress, no accessory muscle use Hips: bilateral hip non-tender, bilateral hip normal inspection, bilateral hip normal range of motion Legs: bilateral leg non-tender, bilateral leg normal inspection, bilateral leg normal range of motion Knees: bilateral knee non-tender, bilateral knee normal inspection, bilateral knee normal range of motion Ankles: bilateral ankle non-tender, bilateral ankle normal inspection, bilateral ankle normal range of motion Neurologic/Psychiatric: alert, normal mood/affect, oriented x 3 Skin: normal color, warm/dry Dorsalis pedis pulse +2 bilateral Progress/Results/Core Measures Results/Orders My Orders Orders - GIANLUCA MOSLEY APRN Hydrocodone/Apap 5/325 Tablet (Lortab 5 (05/16/19 17:45) Ketorolac Injection (Toradol Injection) (05/16/19 17:45) Ct Cervical Spine Wo (05/16/19 17:40) Ct Lumbar Spine Wo (05/16/19 18:35) Medications Given in ED Current Medications Medications Dose Ordered Sig/[place] Route Start Time Stop Time Status Last Admin Dose Admin Acetaminophen/ Hydrocodone Bitart 1 tab ONCE ONCE PO 05/16/19 17:45 05/16/19 17:46 DC 05/16/19 17:52 1 TAB Ketorolac Tromethamine 30 mg ONCE ONCE IM 05/16/19 17:45 05/16/19 17:46 DC 05/16/19 17:52 30 MG Vital Signs/I&O 05/16/19 15:59 Temp 35.2 Pulse 106 Resp 18 B/P (MAP) 148/83 (104) Pulse Ox 96 O2 Delivery Room Air Blood Pressure Mean: 104 Departure Communication (PCP) Given her history of rectal cancer with metastasis to the liver it would be prudent to evaluate the lumbar spine CT. Impression Primary Impression: Lumbar radiculopathy Additional Impression: history of metastatic rectal cancer Disposition: 01 HOME, SELF-CARE Condition: Stable Departure-Patient Inst. Decision time for Depature: 18:28 Referrals: XUAN HOOK MD (PCP/Family) Primary Care Physician Patient Instructions: Radiculopathy (DC) Add. Discharge Instructions: 1. Return to Er for any concerns the pain medication will be constipating so if you don't already been U should take a Colace stool softener twice daily. All discharge instructions reviewed with patient and/or family. Voiced understanding. Scripts Prednisone (Prednisone) 20 Mg Tab 40 MG PO DAILY, #8 TAB 0 Refills Prov: GIANLUCA MOSLEY APRN 05/16/19 Hydrocodone Bit/Acetaminophen (Hydrocodone/Acetaminophen 5/325mg Tablet) 1 Tab Tab 1 EACH PO Q4-6HR PRN for PAIN-MODERATE MDD 10 for 3 Days, #14 TAB Prov: GIANLUCA MOSLEY APRN 05/16/19 GIANLUCA MOSLEY APRN May 16, 2019 17:54
--- NOTE | 2019-05-16 18:26 | Diagnostic Imaging Report ---
PROCEDURE: CT cervical spine without contrast. TECHNIQUE: Multiple contiguous axial images were obtained through the cervical spine without the use of intravenous contrast. Sagittal and coronal reformations were then performed. Auto Exposure Controls were utilized during the CT exam to meet ALARA standards for radiation dose reduction. INDICATION: Recent falls and neck pain. COMPARISON: No prior studies are available for comparison. FINDINGS: There are postoperative changes of posterior cervical fusion extending from approximately C3-T1. There is posterior bone graft material fusing the posterior elements. There is also some cerclage wire inferiorly from the C6-T1 levels. No fractures are identified. The odontoid is intact. Prevertebral tissues are within normal limits. IMPRESSION: Postoperative changes of the cervical spine. No acute bony abnormality is detected. Dictated by: Dictated on workstation # [id number]
--- NOTE | 2019-05-16 18:30 | NUR ---
Patient states pain has greatly improved and now rates her pain at a 3 out of 10.
[2019-05-16] MEDS ORDERED: ACHD5005 PO (18:48)
[2019-05-16] MEDS ORDERED: PRD20T PO (18:48)
--- NOTE | 2019-05-16 19:34 | Diagnostic Imaging Report ---
PROCEDURE: CT lumbar spine without contrast. TECHNIQUE: Multiple contiguous axial images were obtained through the lumbar spine without the use of intravenous contrast. Sagittal and coronal reformations were then performed. Auto Exposure Controls were utilized during the CT exam to meet ALARA standards for radiation dose reduction. INDICATION: Recent falls with severe low back pain. FINDINGS: A left convexity lumbar scoliotic curvature is noted. There is normal lordotic curvature. There is mild anterolisthesis of L4 on L5. There appears to be a chronic superior endplate fracture of the L3 vertebral body, similar to recent CT dating back to 07/14/2018. There is multilevel degenerative disc disease with variable disc space narrowing and marginal spurring. There is marked facet arthropathy at all levels. The paraspinous tissues are unremarkable. IMPRESSION: Lumbar scoliosis and severe spondylosis. No acute fracture is detected. Dictated by: Dictated on workstation # [id number]
[2019-05-16 19:51] VITALS: BP 114/60
== END 2019-05-16 19:50 | disposition home or self-care (01) ==
LOC: EDUNIT# 15:16 → ER 15:18
DX: M54.16 Radiculopathy, lumbar region (principal); I10 Essential (primary) hypertension; F32.9 Major depressive disorder, single episode, unspecified; Z85.048 Personal history of other malignant neoplasm of rectum, rectosigmoid junction, and anus; Z85.038 Personal history of other malignant neoplasm of large intestine; Z88.2 Allergy status to sulfonamides; Z90.49 Acquired absence of other specified parts of digestive tract
CPT/HCPCS: 72125; 72131

== ENCOUNTER 2019-08-03 12:33 | Outpatient (RCR) | payer MEDICARE, OTHER ==
[2019-05-11 10:48] LABS: BASOPHILS % (AUTO) 0 % (0-10); EOSINOPHILS # (AUTO) 0.1 10^3/uL (0.0-0.3); EOSINOPHILS % (AUTO) 2 % (0-10); HEMATOCRIT 37 % (35-52); HEMOGLOBIN 11.9 G/DL (11.5-16.0); LYMPHOCYTES % (AUTO) 18 % (12-44); MEAN CORPUSCULAR HEMOGLOBIN 29 PG (25-34); MEAN CORPUSCULAR HGB CONC 32 G/DL (32-36); MEAN CORPUSCULAR VOLUME 90 FL (80-99); MEAN PLATELET VOLUME 8.5 FL (7.4-10.4); MONOCYTES # (AUTO) 0.5 X 10^3 (0.0-1.0); MONOCYTES % (AUTO) 10 % (0-12); NEUTROPHILS # (AUTO) 3.7 X 10^3 (1.8-7.8); NEUTROPHILS % (AUTO) 70 % (42-75); PLATELET COUNT 321 10^3/uL (130-400); RED CELL DISTRIBUTION WIDTH 14.6 % (10.0-14.5); WHITE BLOOD COUNT 5.4 10^3/uL (4.3-11.0)
[2019-05-11 11:06] LABS: ALANINE AMINOTRANSFERASE 13 U/L (0-55); ALBUMIN 3.6 GM/DL (3.2-4.5); ALKALINE PHOSPHATASE 134 U/L (40-136); BILIRUBIN,TOTAL 0.4 MG/DL (0.1-1.0); BUN/CREATININE RATIO 23; CALCIUM 8.9 MG/DL (8.5-10.1); CARBON DIOXIDE 27 MMOL/L (21-32); CHLORIDE 108 MMOL/L (98-107); CREATININE SERUM 0.77 MG/DL (0.60-1.30); GFR ESTIMATED > 60; GLUCOSE 85 MG/DL (70-105); POTASSIUM 4.2 MMOL/L (3.6-5.0); SODIUM 141 MMOL/L (135-145); TOTAL PROTEIN 6.7 GM/DL (6.4-8.2)
[~2019-08-03 12:33] MED LIST changes: +PRD20T PO
[2019-08-03 12:50] LABS: BASOPHILS % (AUTO) 0 % (0-10); EOSINOPHILS # (AUTO) 0.2 10^3/uL (0.0-0.3); EOSINOPHILS % (AUTO) 4 % (0-10); HEMATOCRIT 37 % (35-52); HEMOGLOBIN 12.1 G/DL (11.5-16.0); LYMPHOCYTES # (AUTO) 1.2 X 10^3 (1.0-4.0); LYMPHOCYTES % (AUTO) 23 % (12-44); MEAN CORPUSCULAR HEMOGLOBIN 30 PG (25-34); MEAN CORPUSCULAR HGB CONC 33 G/DL (32-36); MEAN CORPUSCULAR VOLUME 92 FL (80-99); MONOCYTES # (AUTO) 0.5 X 10^3 (0.0-1.0); MONOCYTES % (AUTO) 9 % (0-12); NEUTROPHILS # (AUTO) 3.4 X 10^3 (1.8-7.8); NEUTROPHILS % (AUTO) 64 % (42-75); PLATELET COUNT 289 10^3/uL (130-400); RED CELL DISTRIBUTION WIDTH 14.6 % (10.0-14.5); WHITE BLOOD COUNT 5.3 10^3/uL (4.3-11.0)
[2019-08-03 13:21] LABS: ALANINE AMINOTRANSFERASE 19 U/L (0-55); ALBUMIN 3.8 GM/DL (3.2-4.5); ALKALINE PHOSPHATASE 131 U/L (40-136); BILIRUBIN,TOTAL 0.4 MG/DL (0.1-1.0); BUN/CREATININE RATIO 37; CARBON DIOXIDE 22 MMOL/L (21-32); CHLORIDE 111 MMOL/L (98-107); CREATININE SERUM 0.71 MG/DL (0.60-1.30); GFR ESTIMATED > 60; GLUCOSE 84 MG/DL (70-105); POTASSIUM 4.1 MMOL/L (3.6-5.0); SODIUM 142 MMOL/L (135-145); TOTAL PROTEIN 6.5 GM/DL (6.4-8.2)
== END 2019-08-09 | disposition home or self-care (01) ==
LOC: ONC 12:33
PROVIDERS: ATTEND Internal Medicine Hematology & Oncology
DX: C78.7 Secondary malignant neoplasm of liver and intrahepatic bile duct (principal); C20 Malignant neoplasm of rectum; Z93.3 Colostomy status; Z92.21 Personal history of antineoplastic chemotherapy; Z79.899 Other long term (current) drug therapy
CPT/HCPCS: 36591; 80053; 82378; 85025; 99213

== ENCOUNTER → 2019-08-15 | Outpatient (CLI) | payer MEDICARE, OTHER ==
[~2019-08-15] MED LIST changes: +OMEP40CA27 PO; -OMEP40CA36 PO
--- NOTE | 2019-08-15 14:46 | Diagnostic Imaging Report ---
INDICATION: Rectal carcinoma with liver metastases. Study is performed for restaging. TECHNIQUE: Serum blood glucose level at the time of injection was 93 mg/dL. The patient was administered 14.3 mCi of F-18 FDG intravenously in the right forearm, and PET imaging was performed from the top of the skull to mid thighs. Noncontrast CT was also performed for attenuation correction and anatomic correlation. All CT scans use one or more of the following dose optimizing techniques: Automated exposure control, MA and/or KvP adjustment based on a patient size and exam type, or iterative reconstruction. COMPARISON: Comparison is made with prior PET/CT from 05/10/2018 as well as the most recent CT abdomen study from 05/11/2019. FINDINGS: There is symmetric activity throughout the brain. Soft tissues of the neck are unremarkable. No hypermetabolic foci within the mediastinum or kisha are seen. There is abnormal hypermetabolism in the dome of the right lobe of the liver corresponding with patient's known liver metastases. This demonstrates an SUV max of approximately 8. No other liver lesions are seen. There is physiologic activity in the GI and tracts. Patient does have an ostomy in the left paramidline abdomen. No hypermetabolic lymph nodes in the abdomen or pelvis are seen. No suspicious hypermetabolism in the region of the rectum is identified. There is physiologic activity in the bladder. IMPRESSION: Hypermetabolic right lobe liver dome mass consistent with known hepatic metastasis. No new liver lesions are seen. No other significant abnormality is detected. Dictated by: Dictated on workstation # [id number]
== END ==
LOC: RAD 11:03
PROVIDERS: ATTEND Internal Medicine Hematology & Oncology
DX: C20 Malignant neoplasm of rectum (principal); C78.7 Secondary malignant neoplasm of liver and intrahepatic bile duct

== ENCOUNTER → 2019-10-05 | Outpatient (CLI) | payer MEDICARE, OTHER ==
[~2019-10-05] MED LIST changes: +CATHETER FLUSH 10 ML SYR IV PRN; -CLAR-19 PO; +CLAR-31 PO; +HOLD METFORMIN - RECEIVED CONTRAST 20 ML VIAL IV SCH; +IOHEXOL 350 MG/ML 100 ML (OMNIPAQUE 350) VIAL IV ONE; +NS 100 ML (IVPB) BAG IV ONE
--- NOTE | 2019-10-05 12:20 | Diagnostic Imaging Report ---
PROCEDURE: CT abdomen with and without contrast. TECHNIQUE: Multiple contiguous axial CT images of the abdomen were obtained prior to and after intravenous administration of iodinated contrast. Auto Exposure Controls were utilized during the CT exam to meet ALARA standards for radiation dose reduction. INDICATION: Rectal carcinoma with liver metastases. Correlation is made with prior CT from 05/11/2019. FINDINGS: Imaging through the lung bases demonstrates the lungs to be clear. There is a trace right pleural effusion, new since prior exam. Previously noted tiny lesion in the inferior right lobe of the liver is stable at approximately 4 mm. The lesion noted more cephalad in the right lobe of liver near the dome has increased in size. There appear to be post-ablation changes with a linear tract extending laterally towards the capsule. The overall size of the lesion is 4.5 cm AP x 4.2 cm transverse. An aggregate of the lesion previously measured 3.6 cm AP x approximately 2.2 cm transverse. No new lesion is identified. Gallbladder again contains small stones. There is no biliary ductal dilatation. Pancreas and spleen are unremarkable. No adrenal mass is detected. Kidneys are unremarkable. Aorta is non-aneurysmal. There is no central retroperitoneal or mesenteric lymphadenopathy. There is a left para-midline ostomy. There is no definite ascites. Severe degenerative changes in the lumbar spine are noted. IMPRESSION: Post-therapeutic changes to the liver. The treated lesion in the right lower lobe liver dome does appear to be increased in overall size when compared with exam from 05/11/2019. It is uncertain if this is owing to post-therapeutic changes versus tumor growth. The remainder of the study is stable. Dictated by: Dictated on workstation # [id number]
== END ==
LOC: RAD 11:00
PROVIDERS: ATTEND Internal Medicine Hematology & Oncology
DX: C20 Malignant neoplasm of rectum (principal); C78.7 Secondary malignant neoplasm of liver and intrahepatic bile duct; Z98.890 Other specified postprocedural states
CPT/HCPCS: 74170

== ENCOUNTER 2019-10-12 13:51 | Outpatient (RCR) | payer MEDICARE, OTHER ==
[2019-10-05 10:39] LABS: BASOPHILS % (AUTO) 0 % (0-10); EOSINOPHILS # (AUTO) 0.1 10^3/uL (0.0-0.3); EOSINOPHILS % (AUTO) 1 % (0-10); HEMATOCRIT 40 % (35-52); LYMPHOCYTES # (AUTO) 0.8 X 10^3 (1.0-4.0); LYMPHOCYTES % (AUTO) 10 % (12-44); MEAN CORPUSCULAR HEMOGLOBIN 31 PG (25-34); MEAN CORPUSCULAR HGB CONC 32 G/DL (32-36); MEAN CORPUSCULAR VOLUME 95 FL (80-99); MEAN PLATELET VOLUME 9.1 FL (7.4-10.4); MONOCYTES # (AUTO) 0.3 X 10^3 (0.0-1.0); MONOCYTES % (AUTO) 4 % (0-12); NEUTROPHILS # (AUTO) 7.3 X 10^3 (1.8-7.8); NEUTROPHILS % (AUTO) 85 % (42-75); PLATELET COUNT 282 10^3/uL (130-400); RED CELL DISTRIBUTION WIDTH 13.6 % (10.0-14.5); WHITE BLOOD COUNT 8.5 10^3/uL (4.3-11.0)
[2019-10-05 10:54] LABS: ALANINE AMINOTRANSFERASE 19 U/L (0-55); ALBUMIN 3.9 GM/DL (3.2-4.5); ALKALINE PHOSPHATASE 127 U/L (40-136); BILIRUBIN,TOTAL 0.5 MG/DL (0.1-1.0); BUN/CREATININE RATIO 18; CALCIUM 9.2 MG/DL (8.5-10.1); CARBON DIOXIDE 25 MMOL/L (21-32); CHLORIDE 105 MMOL/L (98-107); CREATININE SERUM 0.77 MG/DL (0.60-1.30); GFR ESTIMATED > 60; GLUCOSE 92 MG/DL (70-105); POTASSIUM 4.3 MMOL/L (3.6-5.0); SODIUM 140 MMOL/L (135-145); TOTAL PROTEIN 6.8 GM/DL (6.4-8.2)
[~2019-10-12 13:51] MED LIST changes: -CATHETER FLUSH 10 ML SYR IV PRN; -HOLD METFORMIN - RECEIVED CONTRAST 20 ML VIAL IV SCH; -IOHEXOL 350 MG/ML 100 ML (OMNIPAQUE 350) VIAL IV ONE; -NS 100 ML (IVPB) BAG IV ONE
== END 2019-11-08 | disposition home or self-care (01) ==
LOC: ONC 13:51
PROVIDERS: ATTEND Internal Medicine Hematology & Oncology
DX: C78.7 Secondary malignant neoplasm of liver and intrahepatic bile duct (principal); C20 Malignant neoplasm of rectum; Z93.3 Colostomy status; Z92.21 Personal history of antineoplastic chemotherapy; Z79.899 Other long term (current) drug therapy
CPT/HCPCS: 36591; 80053; 82378; 85025; 99213

== ENCOUNTER → 2020-01-02 | Outpatient (CLI) | payer MEDICARE, OTHER ==
[2020-01-02 15:41] LABS: TRIGLYCERIDES 198 MG/DL (<150); VLDL CHOLESTEROL 40 MG/DL (5-40)
[2020-01-02 15:46] LABS: CHOLESTEROL 143 MG/DL (< 200); HDL CHOLESTEROL 40 MG/DL (40-60)
== END ==
LOC: LAB 15:06
PROVIDERS: ATTEND Nurse Practitioner
DX: Z01.89 Encounter for other specified special examinations (principal)
CPT/HCPCS: 36415; 80061

== ENCOUNTER → 2020-02-09 | Outpatient (CLI) | payer MEDICARE, OTHER ==
[~2020-02-09] MED LIST changes: +BARIUM SUSPENSION 2.1% (VANILLA SILQ) 450 ML PO ONE; +CATHETER FLUSH 10 ML SYR IV PRN; +HOLD METFORMIN - RECEIVED CONTRAST 20 ML VIAL IV SCH; +IOHEXOL 350 MG/ML 100 ML (OMNIPAQUE 350) VIAL IV ONE; +NS 100 ML (IVPB) BAG IV ONE
--- NOTE | 2020-02-09 12:17 | Diagnostic Imaging Report ---
PROCEDURE: CT chest with contrast, CT abdomen with and without contrast. TECHNIQUE: Precontrast acquisitions were acquired through the abdomen. Multiple contiguous axial images were obtained through the chest and abdomen after administration of intravenous contrast. Auto Exposure Controls were utilized during the CT exam to meet ALARA standards for radiation dose reduction. INDICATION: Rectal carcinoma and liver metastases. Correlation is made with prior CT of the chest from 07/14/[address] abdomen from 10/05/2019. Comparison is also made with PET/CT study from 08/15/2019. CT CHEST: Right chest wall port has the tip in the SVC. No axillary lymphadenopathy is detected. No definite mediastinal or hilar lymphadenopathy is detected. No pericardial or pleural fluid is detected. No pulmonary nodule, mass or infiltrate is detected. IMPRESSION: Unremarkable CT of the chest. There is no evidence of thoracic lymphadenopathy or pulmonary metastatic disease. CT ABDOMEN: Low-density mass in the dome of the right lobe of the liver measures 3.7 cm AP x 4.47 m transverse. This compares with approximately 4.8 cm AP x 4.5 cm transverse when compared with the September exam and measured by similar technique. A tiny low density inferior right lobe appears stable. No new liver mass is identified. Gallbladder contains a small stone. No biliary ductal dilatation is seen. Pancreas and spleen are unremarkable. No adrenal mass is detected. Kidneys are unremarkable. Aorta is nonaneurysmal. No central retroperitoneal or mesenteric lymphadenopathy is detected. A left lower quadrant ostomy is again noted. Visualized bowel loops are normal caliber. No ascites. IMPRESSION: Slight decrease in size of right lobe liver mass when compared with exam from 10/05/2019. No new liver mass is detected. No abdominal lymphadenopathy is identified. Dictated by: Dictated on workstation # [id number]
== END ==
LOC: RAD 10:57
PROVIDERS: ATTEND Internal Medicine Hematology & Oncology
DX: C20 Malignant neoplasm of rectum (principal); C78.7 Secondary malignant neoplasm of liver and intrahepatic bile duct
CPT/HCPCS: 71260; 74170

== ENCOUNTER 2020-02-15 12:41 | Outpatient (RCR) | payer MEDICARE, OTHER ==
[2019-11-21 13:33] LABS: BASOPHILS % (AUTO) 0 % (0-10); EOSINOPHILS # (AUTO) 0.1 10^3/uL (0.0-0.3); EOSINOPHILS % (AUTO) 2 % (0-10); HEMATOCRIT 38 % (35-52); HEMOGLOBIN 12.6 G/DL (11.5-16.0); LYMPHOCYTES # (AUTO) 1.1 X 10^3 (1.0-4.0); LYMPHOCYTES % (AUTO) 23 % (12-44); MEAN CORPUSCULAR HEMOGLOBIN 32 PG (25-34); MEAN CORPUSCULAR HGB CONC 33 G/DL (32-36); MEAN CORPUSCULAR VOLUME 97 FL (80-99); MEAN PLATELET VOLUME 8.7 FL (7.4-10.4); MONOCYTES # (AUTO) 0.5 X 10^3 (0.0-1.0); MONOCYTES % (AUTO) 11 % (0-12); NEUTROPHILS # (AUTO) 2.8 X 10^3 (1.8-7.8); NEUTROPHILS % (AUTO) 63 % (42-75); PLATELET COUNT 261 10^3/uL (130-400); RED CELL DISTRIBUTION WIDTH 16.4 % (10.0-14.5); WHITE BLOOD COUNT 4.5 10^3/uL (4.3-11.0)
[2019-11-21 13:51] LABS: ALANINE AMINOTRANSFERASE 13 U/L (0-55); ALBUMIN 3.7 GM/DL (3.2-4.5); ALKALINE PHOSPHATASE 123 U/L (40-136); BILIRUBIN,TOTAL 0.5 MG/DL (0.1-1.0); BUN/CREATININE RATIO 16; CALCIUM 8.8 MG/DL (8.5-10.1); CARBON DIOXIDE 24 MMOL/L (21-32); CHLORIDE 107 MMOL/L (98-107); CREATININE SERUM 0.86 MG/DL (0.60-1.30); GFR ESTIMATED > 60; GLUCOSE 137 MG/DL (70-105); POTASSIUM 3.6 MMOL/L (3.6-5.0); SODIUM 140 MMOL/L (135-145); TOTAL PROTEIN 6.5 GM/DL (6.4-8.2)
[2019-12-12 15:31] LABS: BASOPHILS % (AUTO) 0 % (0-10); EOSINOPHILS # (AUTO) 0.1 10^3/uL (0.0-0.3); EOSINOPHILS % (AUTO) 2 % (0-10); HEMATOCRIT 39 % (35-52); LYMPHOCYTES # (AUTO) 1.1 X 10^3 (1.0-4.0); LYMPHOCYTES % (AUTO) 20 % (12-44); MEAN CORPUSCULAR HEMOGLOBIN 33 PG (25-34); MEAN CORPUSCULAR HGB CONC 34 G/DL (32-36); MEAN CORPUSCULAR VOLUME 98 FL (80-99); MEAN PLATELET VOLUME 8.6 FL (7.4-10.4); MONOCYTES # (AUTO) 0.5 X 10^3 (0.0-1.0); MONOCYTES % (AUTO) 9 % (0-12); NEUTROPHILS # (AUTO) 3.9 X 10^3 (1.8-7.8); NEUTROPHILS % (AUTO) 69 % (42-75); PLATELET COUNT 259 10^3/uL (130-400); RED CELL DISTRIBUTION WIDTH 17.5 % (10.0-14.5); WHITE BLOOD COUNT 5.7 10^3/uL (4.3-11.0)
[2019-12-12 15:48] LABS: ALBUMIN 3.8 GM/DL (3.2-4.5); BILIRUBIN,TOTAL 0.4 MG/DL (0.1-1.0); CALCIUM 8.9 MG/DL (8.5-10.1); CREATININE SERUM 1.05 MG/DL (0.60-1.30); POTASSIUM 3.9 MMOL/L (3.6-5.0); TOTAL PROTEIN 6.7 GM/DL (6.4-8.2)
[2020-01-02 15:09] LABS: BASOPHILS % (AUTO) 0 % (0-10); EOSINOPHILS # (AUTO) 0.1 10^3/uL (0.0-0.3); EOSINOPHILS % (AUTO) 3 % (0-10); HEMATOCRIT 37 % (35-52); HEMOGLOBIN 12.4 G/DL (11.5-16.0); LYMPHOCYTES # (AUTO) 1.2 X 10^3 (1.0-4.0); LYMPHOCYTES % (AUTO) 25 % (12-44); MEAN CORPUSCULAR HEMOGLOBIN 34 PG (25-34); MEAN CORPUSCULAR HGB CONC 34 G/DL (32-36); MEAN CORPUSCULAR VOLUME 100 FL (80-99); MEAN PLATELET VOLUME 8.5 FL (7.4-10.4); MONOCYTES # (AUTO) 0.6 X 10^3 (0.0-1.0); MONOCYTES % (AUTO) 12 % (0-12); NEUTROPHILS # (AUTO) 2.8 X 10^3 (1.8-7.8); NEUTROPHILS % (AUTO) 60 % (42-75); PLATELET COUNT 252 10^3/uL (130-400); WHITE BLOOD COUNT 4.6 10^3/uL (4.3-11.0)
[2020-01-02 15:32] LABS: ALANINE AMINOTRANSFERASE 11 U/L (0-55); ALBUMIN 3.8 GM/DL (3.2-4.5); ALKALINE PHOSPHATASE 134 U/L (40-136); BILIRUBIN,TOTAL 0.7 MG/DL (0.1-1.0); BUN/CREATININE RATIO 16; CALCIUM 9.1 MG/DL (8.5-10.1); CARBON DIOXIDE 26 MMOL/L (21-32); CHLORIDE 107 MMOL/L (98-107); GFR ESTIMATED > 60; GLUCOSE 90 MG/DL (70-105); POTASSIUM 3.7 MMOL/L (3.6-5.0); SODIUM 141 MMOL/L (135-145); TOTAL PROTEIN 6.6 GM/DL (6.4-8.2)
[2020-01-23 11:08] LABS: BASOPHILS % (AUTO) 0 % (0-10); EOSINOPHILS # (AUTO) 0.2 10^3/uL (0.0-0.3); EOSINOPHILS % (AUTO) 3 % (0-10); HEMATOCRIT 36 % (35-52); HEMOGLOBIN 11.9 G/DL (11.5-16.0); LYMPHOCYTES # (AUTO) 0.9 X 10^3 (1.0-4.0); LYMPHOCYTES % (AUTO) 20 % (12-44); MEAN CORPUSCULAR HEMOGLOBIN 34 PG (25-34); MEAN CORPUSCULAR HGB CONC 33 G/DL (32-36); MEAN CORPUSCULAR VOLUME 102 FL (80-99); MEAN PLATELET VOLUME 8.7 FL (7.4-10.4); MONOCYTES # (AUTO) 0.5 X 10^3 (0.0-1.0); MONOCYTES % (AUTO) 11 % (0-12); NEUTROPHILS # (AUTO) 3.1 X 10^3 (1.8-7.8); NEUTROPHILS % (AUTO) 66 % (42-75); PLATELET COUNT 222 10^3/uL (130-400); RED CELL DISTRIBUTION WIDTH 17.3 % (10.0-14.5); WHITE BLOOD COUNT 4.7 10^3/uL (4.3-11.0)
[2020-01-23 11:26] LABS: ALANINE AMINOTRANSFERASE 7 U/L (0-55); ALBUMIN 3.6 GM/DL (3.2-4.5); ALKALINE PHOSPHATASE 135 U/L (40-136); BILIRUBIN,TOTAL 0.5 MG/DL (0.1-1.0); BUN/CREATININE RATIO 15; CALCIUM 8.6 MG/DL (8.5-10.1); CARBON DIOXIDE 25 MMOL/L (21-32); CHLORIDE 110 MMOL/L (98-107); CREATININE SERUM 0.82 MG/DL (0.60-1.30); GFR ESTIMATED > 60; GLUCOSE 95 MG/DL (70-105); POTASSIUM 3.7 MMOL/L (3.6-5.0); SODIUM 141 MMOL/L (135-145); TOTAL PROTEIN 6.3 GM/DL (6.4-8.2)
[2020-02-09 10:56] LABS: BASOPHILS % (AUTO) 1 % (0-10); EOSINOPHILS # (AUTO) 0.1 10^3/uL (0.0-0.3); EOSINOPHILS % (AUTO) 3 % (0-10); HEMATOCRIT 37 % (35-52); HEMOGLOBIN 12.7 G/DL (11.5-16.0); LYMPHOCYTES % (AUTO) 23 % (12-44); MEAN CORPUSCULAR HEMOGLOBIN 35 PG (25-34); MEAN CORPUSCULAR HGB CONC 34 G/DL (32-36); MEAN CORPUSCULAR VOLUME 103 FL (80-99); MEAN PLATELET VOLUME 8.8 FL (7.4-10.4); MONOCYTES # (AUTO) 0.5 X 10^3 (0.0-1.0); MONOCYTES % (AUTO) 11 % (0-12); NEUTROPHILS # (AUTO) 2.6 X 10^3 (1.8-7.8); NEUTROPHILS % (AUTO) 62 % (42-75); PLATELET COUNT 245 10^3/uL (130-400); RED CELL DISTRIBUTION WIDTH 16.4 % (10.0-14.5); WHITE BLOOD COUNT 4.2 10^3/uL (4.3-11.0)
[2020-02-09 11:16] LABS: ALBUMIN 3.8 GM/DL (3.2-4.5); BILIRUBIN,TOTAL 0.8 MG/DL (0.1-1.0); CREATININE SERUM 0.92 MG/DL (0.60-1.30); POTASSIUM 4.2 MMOL/L (3.6-5.0); TOTAL PROTEIN 6.7 GM/DL (6.4-8.2)
[~2020-02-15 12:41] MED LIST changes: -BARIUM SUSPENSION 2.1% (VANILLA SILQ) 450 ML PO ONE; -CATHETER FLUSH 10 ML SYR IV PRN; -HOLD METFORMIN - RECEIVED CONTRAST 20 ML VIAL IV SCH; -IOHEXOL 350 MG/ML 100 ML (OMNIPAQUE 350) VIAL IV ONE; -NS 100 ML (IVPB) BAG IV ONE
== END 2020-02-19 | disposition home or self-care (01) ==
LOC: ONC 12:41
PROVIDERS: ATTEND Internal Medicine Hematology & Oncology
DX: C20 Malignant neoplasm of rectum (principal); C78.7 Secondary malignant neoplasm of liver and intrahepatic bile duct; Z93.3 Colostomy status; Z92.21 Personal history of antineoplastic chemotherapy; Z79.899 Other long term (current) drug therapy
CPT/HCPCS: 80053; 82378; 85025; G0463; 36591; 99213

== ENCOUNTER → 2020-04-18 | Outpatient (CLI) | payer MEDICARE, OTHER ==
--- NOTE | 2020-04-18 16:28 | Diagnostic Imaging Report ---
PROCEDURE: US left lower extremity venous. TECHNIQUE: Multiple real-time grayscale images were obtained over the left lower extremity in various projections. Additional duplex Doppler and color Doppler images were also obtained. INDICATION: Calf swelling. FINDINGS: The femoropopliteal deep venous system is widely patent; however, there is a deep thrombus within the calf isolated to the posterior tibial and peroneal veins. No superficial thrombi. There is a Luna's cyst in the popliteal fossa measuring 6 cm. IMPRESSION: 1. Venous thrombus isolated to the calf within the peroneal vein and posterior tibial vein. 2. The femoropopliteal deep venous system is patent. 3. Popliteal fossa Luna's cyst noted. Dictated by: Dictated on workstation # [id number]
== END ==
LOC: RAD 13:53
PROVIDERS: ATTEND Nurse Practitioner Adult Health
DX: I82.452 Acute embolism and thrombosis of left peroneal vein (principal); I82.442 Acute embolism and thrombosis of left tibial vein; M71.22 Synovial cyst of popliteal space [Baker], left knee

== ENCOUNTER → 2020-05-07 | Outpatient (CLI) | payer MEDICARE, OTHER ==
--- NOTE | 2020-05-07 15:10 | Diagnostic Imaging Report ---
INDICATION: Colorectal carcinoma with liver metastases. Study is performed for subsequent restaging. Patient has elevated CEA levels. TECHNIQUE: The serum blood glucose level at the time of injection was 101 mg/dL. The patient was administered 13.8 mCi of F-18 FDG intravenously in the left forearm and PET imaging was performed from the top of the skull to the mid thighs. A noncontrast CT was also performed for attenuation correction and anatomic correlation. COMPARISON: PET/CT study from 08/15/2019. FINDINGS: There is symmetric activity throughout the brain. The soft tissues of the neck are unremarkable. The mediastinum and kisha are unremarkable for a hypermetabolic focus. No pulmonary parenchymal hypermetabolism is identified. The hypermetabolic mass previously seen in the dome of the right lobe of the liver is again noted. The SUV max is approximately 6. This compares with 8 on the prior PET study. No new liver hypermetabolism is identified. Physiologic activity throughout the GI and tract is noted. A left para-midline ostomy is noted. No additional areas of hypermetabolism are identified. IMPRESSION: The PET/CT study again demonstrates a hypermetabolic mass in the dome of the right lobe of the liver, similar to the examination from August 2019. The SUV max is 6 today compared with 8 on the prior exam. No new hypermetabolic foci are identified. Dictated by: Dictated on workstation # [id number]
== END ==
LOC: RAD 11:31
PROVIDERS: ATTEND Nurse Practitioner Adult Health
DX: Z01.89 Encounter for other specified special examinations (principal); C20 Malignant neoplasm of rectum; C78.7 Secondary malignant neoplasm of liver and intrahepatic bile duct
CPT/HCPCS: 78815; A9552

== ENCOUNTER 2020-05-30 13:58 | Outpatient (RCR) | payer MEDICARE, OTHER ==
[2020-03-06 14:08] LABS: BASOPHILS % (AUTO) 1 % (0-10); EOSINOPHILS # (AUTO) 0.1 10^3/uL (0.0-0.3); EOSINOPHILS % (AUTO) 2 % (0-10); HEMATOCRIT 37 % (35-52); HEMOGLOBIN 12.4 G/DL (11.5-16.0); LYMPHOCYTES # (AUTO) 1.5 X 10^3 (1.0-4.0); LYMPHOCYTES % (AUTO) 22 % (12-44); MEAN CORPUSCULAR HEMOGLOBIN 36 PG (25-34); MEAN CORPUSCULAR HGB CONC 34 G/DL (32-36); MEAN CORPUSCULAR VOLUME 106 FL (80-99); MEAN PLATELET VOLUME 8.6 FL (7.4-10.4); MONOCYTES # (AUTO) 0.6 X 10^3 (0.0-1.0); MONOCYTES % (AUTO) 9 % (0-12); NEUTROPHILS # (AUTO) 4.4 X 10^3 (1.8-7.8); NEUTROPHILS % (AUTO) 66 % (42-75); PLATELET COUNT 246 10^3/uL (130-400); WHITE BLOOD COUNT 6.6 10^3/uL (4.3-11.0)
[2020-03-06 14:25] LABS: ALANINE AMINOTRANSFERASE 10 U/L (0-55); ALKALINE PHOSPHATASE 120 U/L (40-136); BILIRUBIN,TOTAL 0.6 MG/DL (0.1-1.0); BUN/CREATININE RATIO 21; CALCIUM 8.9 MG/DL (8.5-10.1); CARBON DIOXIDE 22 MMOL/L (21-32); CHLORIDE 107 MMOL/L (98-107); CREATININE SERUM 0.78 MG/DL (0.60-1.30); GFR ESTIMATED > 60; GLUCOSE 96 MG/DL (70-105); SODIUM 141 MMOL/L (135-145); TOTAL PROTEIN 6.8 GM/DL (6.4-8.2)
[2020-03-27 13:11] LABS: BASOPHILS % (AUTO) 0 % (0-10); EOSINOPHILS # (AUTO) 0.1 10^3/uL (0.0-0.3); EOSINOPHILS % (AUTO) 3 % (0-10); HEMATOCRIT 36 % (35-52); HEMOGLOBIN 12.3 G/DL (11.5-16.0); LYMPHOCYTES # (AUTO) 1.2 X 10^3 (1.0-4.0); LYMPHOCYTES % (AUTO) 25 % (12-44); MEAN CORPUSCULAR HEMOGLOBIN 36 PG (25-34); MEAN CORPUSCULAR HGB CONC 34 G/DL (32-36); MEAN CORPUSCULAR VOLUME 105 FL (80-99); MEAN PLATELET VOLUME 8.9 FL (7.4-10.4); MONOCYTES # (AUTO) 0.4 X 10^3 (0.0-1.0); MONOCYTES % (AUTO) 9 % (0-12); NEUTROPHILS % (AUTO) 62 % (42-75); PLATELET COUNT 227 10^3/uL (130-400); WHITE BLOOD COUNT 4.8 10^3/uL (4.3-11.0)
[2020-03-27 13:26] LABS: ALANINE AMINOTRANSFERASE 18 U/L (0-55); ALBUMIN 3.9 GM/DL (3.2-4.5); ALKALINE PHOSPHATASE 122 U/L (40-136); BILIRUBIN,TOTAL 0.8 MG/DL (0.1-1.0); BUN/CREATININE RATIO 17; CALCIUM 9.2 MG/DL (8.5-10.1); CARBON DIOXIDE 24 MMOL/L (21-32); CHLORIDE 111 MMOL/L (98-107); CREATININE SERUM 0.86 MG/DL (0.60-1.30); GFR ESTIMATED > 60; GLUCOSE 134 MG/DL (70-105); POTASSIUM 3.8 MMOL/L (3.6-5.0); SODIUM 142 MMOL/L (135-145); TOTAL PROTEIN 6.3 GM/DL (6.4-8.2)
[2020-04-18 13:13] LABS: BASOPHILS % (AUTO) 0 % (0-10); EOSINOPHILS # (AUTO) 0.1 10^3/uL (0.0-0.3); EOSINOPHILS % (AUTO) 3 % (0-10); HEMATOCRIT 36 % (35-52); HEMOGLOBIN 12.6 G/DL (11.5-16.0); LYMPHOCYTES # (AUTO) 1.3 X 10^3 (1.0-4.0); LYMPHOCYTES % (AUTO) 22 % (12-44); MEAN CORPUSCULAR HEMOGLOBIN 36 PG (25-34); MEAN CORPUSCULAR HGB CONC 35 G/DL (32-36); MEAN CORPUSCULAR VOLUME 102 FL (80-99); MEAN PLATELET VOLUME 8.7 FL (7.4-10.4); MONOCYTES # (AUTO) 0.6 X 10^3 (0.0-1.0); MONOCYTES % (AUTO) 10 % (0-12); NEUTROPHILS # (AUTO) 3.7 X 10^3 (1.8-7.8); NEUTROPHILS % (AUTO) 65 % (42-75); PLATELET COUNT 211 10^3/uL (130-400); WHITE BLOOD COUNT 5.7 10^3/uL (4.3-11.0)
[2020-04-18 13:38] LABS: ALANINE AMINOTRANSFERASE 13 U/L (0-55); ALBUMIN 3.9 GM/DL (3.2-4.5); ALKALINE PHOSPHATASE 146 U/L (40-136); BILIRUBIN,TOTAL 0.6 MG/DL (0.1-1.0); BUN/CREATININE RATIO 18; CALCIUM 8.8 MG/DL (8.5-10.1); CARBON DIOXIDE 24 MMOL/L (21-32); CHLORIDE 108 MMOL/L (98-107); CREATININE SERUM 0.83 MG/DL (0.60-1.30); GFR ESTIMATED > 60; GLUCOSE 94 MG/DL (70-105); POTASSIUM 3.8 MMOL/L (3.6-5.0); SODIUM 141 MMOL/L (135-145); TOTAL PROTEIN 6.7 GM/DL (6.4-8.2)
[2020-05-09 14:32] LABS: BASOPHILS % (AUTO) 0 % (0-10); EOSINOPHILS # (AUTO) 0.2 10^3/uL (0.0-0.3); EOSINOPHILS % (AUTO) 3 % (0-10); HEMATOCRIT 34 % (35-52); HEMOGLOBIN 11.1 g/dL (11.5-16.0); LYMPHOCYTES # (AUTO) 1.2 10^3/uL (1.0-4.0); LYMPHOCYTES % (AUTO) 24 % (12-44); MEAN CORPUSCULAR HEMOGLOBIN 35 pg (25-34); MEAN CORPUSCULAR HGB CONC 33 g/dL (32-36); MEAN CORPUSCULAR VOLUME 107 fL (80-99); MONOCYTES # (AUTO) 0.6 10^3/uL (0.0-1.0); MONOCYTES % (AUTO) 11 % (0-12); NEUTROPHILS % (AUTO) 61 % (42-75); PLATELET COUNT 192 10^3/uL (130-400); WHITE BLOOD COUNT 4.9 10^3/uL (4.3-11.0)
[2020-05-09 14:46] LABS: ALANINE AMINOTRANSFERASE 22 U/L (0-55); ALBUMIN 3.7 GM/DL (3.2-4.5); ALKALINE PHOSPHATASE 114 U/L (40-136); BILIRUBIN,TOTAL 0.5 MG/DL (0.1-1.0); BUN/CREATININE RATIO 21; CALCIUM 8.7 MG/DL (8.5-10.1); CARBON DIOXIDE 24 MMOL/L (21-32); CHLORIDE 112 MMOL/L (98-107); CREATININE SERUM 0.85 MG/DL (0.60-1.30); GFR ESTIMATED > 60; GLUCOSE 110 MG/DL (70-105); POTASSIUM 3.6 MMOL/L (3.6-5.0); SODIUM 145 MMOL/L (135-145); TOTAL PROTEIN 5.8 GM/DL (6.4-8.2)
[~2020-05-30 13:58] MED LIST changes: +AMLO-250 PO; -AMLO5TAB9 PO
[2020-05-30 14:38] LABS: BASOPHILS % (AUTO) 1 % (0-10); EOSINOPHILS # (AUTO) 0.1 10^3/uL (0.0-0.3); EOSINOPHILS % (AUTO) 2 % (0-10); HEMATOCRIT 37 % (35-52); HEMOGLOBIN 12.3 g/dL (11.5-16.0); LYMPHOCYTES # (AUTO) 1.3 10^3/uL (1.0-4.0); LYMPHOCYTES % (AUTO) 21 % (12-44); MEAN CORPUSCULAR HEMOGLOBIN 35 pg (25-34); MEAN CORPUSCULAR HGB CONC 33 g/dL (32-36); MEAN CORPUSCULAR VOLUME 106 fL (80-99); MONOCYTES # (AUTO) 0.5 10^3/uL (0.0-1.0); MONOCYTES % (AUTO) 8 % (0-12); NEUTROPHILS % (AUTO) 68 % (42-75); PLATELET COUNT 221 10^3/uL (130-400); WHITE BLOOD COUNT 5.9 10^3/uL (4.3-11.0)
[2020-05-30 14:59] LABS: ALANINE AMINOTRANSFERASE 16 U/L (0-55); ALBUMIN 3.8 GM/DL (3.2-4.5); ALKALINE PHOSPHATASE 145 U/L (40-136); BILIRUBIN,TOTAL 0.7 MG/DL (0.1-1.0); BUN/CREATININE RATIO 18; CALCIUM 9.1 MG/DL (8.5-10.1); CARBON DIOXIDE 24 MMOL/L (21-32); CHLORIDE 106 MMOL/L (98-107); CREATININE SERUM 0.87 MG/DL (0.60-1.30); GFR ESTIMATED > 60; GLUCOSE 136 MG/DL (70-105); POTASSIUM 3.7 MMOL/L (3.6-5.0); SODIUM 139 MMOL/L (135-145); TOTAL PROTEIN 6.7 GM/DL (6.4-8.2)
== END 2020-06-04 | disposition home or self-care (01) ==
LOC: ONC 13:58
PROVIDERS: ATTEND Internal Medicine Hematology & Oncology
DX: C20 Malignant neoplasm of rectum (principal); C78.7 Secondary malignant neoplasm of liver and intrahepatic bile duct; Z93.3 Colostomy status; Z92.21 Personal history of antineoplastic chemotherapy; Z79.899 Other long term (current) drug therapy; Z92.3 Personal history of irradiation; Z85.038 Personal history of other malignant neoplasm of large intestine
CPT/HCPCS: 80053; 82378; 85025; G0463; 36591

== ENCOUNTER 2020-07-15 13:37 | Outpatient (RCR) | payer MEDICARE, OTHER ==
[2020-06-19 15:24] LABS: BASOPHILS % (AUTO) 1 % (0-10); EOSINOPHILS # (AUTO) 0.1 10^3/uL (0.0-0.3); EOSINOPHILS % (AUTO) 2 % (0-10); HEMATOCRIT 36 % (35-52); HEMOGLOBIN 12.1 g/dL (11.5-16.0); LYMPHOCYTES # (AUTO) 1.4 10^3/uL (1.0-4.0); LYMPHOCYTES % (AUTO) 23 % (12-44); MEAN CORPUSCULAR HEMOGLOBIN 35 pg (25-34); MEAN CORPUSCULAR HGB CONC 33 g/dL (32-36); MEAN CORPUSCULAR VOLUME 103 fL (80-99); MEAN PLATELET VOLUME 9.2 fL (9.0-12.2); MONOCYTES # (AUTO) 0.5 10^3/uL (0.0-1.0); MONOCYTES % (AUTO) 8 % (0-12); NEUTROPHILS # (AUTO) 3.9 10^3/uL (1.8-7.8); NEUTROPHILS % (AUTO) 66 % (42-75); PLATELET COUNT 302 10^3/uL (130-400); WHITE BLOOD COUNT 5.9 10^3/uL (4.3-11.0)
[2020-06-19 15:52] LABS: ALANINE AMINOTRANSFERASE 16 U/L (0-55); ALBUMIN 3.8 GM/DL (3.2-4.5); ALKALINE PHOSPHATASE 143 U/L (40-136); BILIRUBIN,TOTAL 0.4 MG/DL (0.1-1.0); BUN/CREATININE RATIO 15; CALCIUM 9.2 MG/DL (8.5-10.1); CARBON DIOXIDE 25 MMOL/L (21-32); CHLORIDE 107 MMOL/L (98-107); CREATININE SERUM 0.88 MG/DL (0.60-1.30); GFR ESTIMATED > 60; GLUCOSE 90 MG/DL (70-105); SODIUM 142 MMOL/L (135-145); TOTAL PROTEIN 6.7 GM/DL (6.4-8.2)
[2020-07-15 14:16] LABS: BASOPHILS % (AUTO) 0 % (0-10); EOSINOPHILS # (AUTO) 0.1 10^3/uL (0.0-0.3); EOSINOPHILS % (AUTO) 2 % (0-10); HEMATOCRIT 38 % (35-52); HEMOGLOBIN 12.3 g/dL (11.5-16.0); LYMPHOCYTES % (AUTO) 19 % (12-44); MEAN CORPUSCULAR HEMOGLOBIN 34 pg (25-34); MEAN CORPUSCULAR HGB CONC 33 g/dL (32-36); MEAN CORPUSCULAR VOLUME 104 fL (80-99); MEAN PLATELET VOLUME 9.1 fL (9.0-12.2); MONOCYTES # (AUTO) 0.4 10^3/uL (0.0-1.0); MONOCYTES % (AUTO) 8 % (0-12); NEUTROPHILS # (AUTO) 3.8 10^3/uL (1.8-7.8); NEUTROPHILS % (AUTO) 71 % (42-75); PLATELET COUNT 230 10^3/uL (130-400); WHITE BLOOD COUNT 5.4 10^3/uL (4.3-11.0)
[2020-07-15 14:35] LABS: ALBUMIN 3.8 GM/DL (3.2-4.5); BILIRUBIN,TOTAL 0.5 MG/DL (0.1-1.0); CALCIUM 8.9 MG/DL (8.5-10.1); CREATININE SERUM 0.91 MG/DL (0.60-1.30); TOTAL PROTEIN 6.7 GM/DL (6.4-8.2)
[2020-08-05 14:21] LABS: BASOPHILS % (AUTO) 0 % (0-10); EOSINOPHILS # (AUTO) 0.1 10^3/uL (0.0-0.3); EOSINOPHILS % (AUTO) 3 % (0-10); HEMATOCRIT 37 % (35-52); HEMOGLOBIN 12.3 g/dL (11.5-16.0); LYMPHOCYTES # (AUTO) 1.1 10^3/uL (1.0-4.0); LYMPHOCYTES % (AUTO) 19 % (12-44); MEAN CORPUSCULAR HEMOGLOBIN 33 pg (25-34); MEAN CORPUSCULAR HGB CONC 33 g/dL (32-36); MEAN CORPUSCULAR VOLUME 101 fL (80-99); MEAN PLATELET VOLUME 8.9 fL (9.0-12.2); MONOCYTES # (AUTO) 0.4 10^3/uL (0.0-1.0); MONOCYTES % (AUTO) 8 % (0-12); NEUTROPHILS # (AUTO) 3.9 10^3/uL (1.8-7.8); NEUTROPHILS % (AUTO) 70 % (42-75); PLATELET COUNT 225 10^3/uL (130-400); WHITE BLOOD COUNT 5.5 10^3/uL (4.3-11.0)
[2020-08-05 14:44] LABS: ALBUMIN 3.6 GM/DL (3.2-4.5); BILIRUBIN,TOTAL 0.4 MG/DL (0.1-1.0); CALCIUM 8.8 MG/DL (8.5-10.1); CREATININE SERUM 0.97 MG/DL (0.60-1.30); TOTAL PROTEIN 6.9 GM/DL (6.4-8.2)
== END 2020-08-05 09:24 | disposition home or self-care (01) ==
LOC: ONC 13:37
PROVIDERS: ATTEND Internal Medicine Hematology & Oncology
DX: C20 Malignant neoplasm of rectum (principal); C78.7 Secondary malignant neoplasm of liver and intrahepatic bile duct; I82.402 Acute embolism and thrombosis of unspecified deep veins of left lower extremity; Z93.3 Colostomy status; Z92.21 Personal history of antineoplastic chemotherapy; Z79.899 Other long term (current) drug therapy; Z92.3 Personal history of irradiation; Z85.038 Personal history of other malignant neoplasm of large intestine
CPT/HCPCS: 80053; 82378; 85025; G0463; 36591; 99213

== ENCOUNTER → 2020-10-08 | Outpatient (CLI) | payer MEDICARE, OTHER ==
--- NOTE | 2020-10-08 14:30 | Diagnostic Imaging Report ---
INDICATION: Malignant neoplasm of the rectum. Study is performed for subsequent treatment strategy and restaging as well as treatment response. TECHNIQUE: Serum blood glucose level at the time of injection is 110 mg/dL. Patient was administered 13.2 mCi F-18 FDG intravenously in the right antecubital location and PET imaging was performed from the top of skull to mid thighs. Noncontrast CT was also performed for attenuation correction and anatomic correlation. FINDINGS: There is symmetric activity throughout the brain. The soft tissues of the neck are unremarkable. No mediastinal or hilar hypermetabolism is identified. No pulmonary parenchymal hypermetabolism is identified. Previously noted hypermetabolic mass in the dome of the liver is no longer hypermetabolic. There is a rounded low-density lesion there. Patient reportedly is status post ablation therapy in June 2020. No new liver mass is detected. There is physiologic activity throughout the gastrointestinal and genitourinary tracts of the abdomen and pelvis. No hypermetabolic lymphadenopathy is seen. There is an ostomy in the left lower quadrant. IMPRESSION: Hypermetabolism involving the dome of the liver mass is no longer present. No new site of hypermetabolism is identified on today's PET/CT study. Dictated by: Dictated on workstation # [id number]
== END ==
LOC: RAD 09:27
PROVIDERS: ATTEND Nurse Practitioner Adult Health
DX: C20 Malignant neoplasm of rectum (principal); C78.7 Secondary malignant neoplasm of liver and intrahepatic bile duct
CPT/HCPCS: 78815; A9552

== ENCOUNTER 2020-10-15 14:34 | Outpatient (RCR) | payer MEDICARE, OTHER ==
[2020-08-26 14:31] LABS: BASOPHILS % (AUTO) 0 % (0-10); EOSINOPHILS # (AUTO) 0.1 10^3/uL (0.0-0.3); EOSINOPHILS % (AUTO) 2 % (0-10); HEMATOCRIT 37 % (35-52); HEMOGLOBIN 12.4 g/dL (11.5-16.0); LYMPHOCYTES # (AUTO) 1.3 X 10^3 (1.0-4.0); LYMPHOCYTES % (AUTO) 25 % (12-44); MEAN CORPUSCULAR HEMOGLOBIN 34 pg (25-34); MEAN CORPUSCULAR HGB CONC 33 g/dL (32-36); MEAN CORPUSCULAR VOLUME 100 fL (80-99); MEAN PLATELET VOLUME 8.6 fL (9.0-12.2); MONOCYTES # (AUTO) 0.4 X 10^3 (0.0-1.0); MONOCYTES % (AUTO) 7 % (0-12); NEUTROPHILS # (AUTO) 3.3 X 10^3 (1.8-7.8); NEUTROPHILS % (AUTO) 66 % (42-75); PLATELET COUNT 224 10^3/uL (130-400)
[2020-08-26 14:50] LABS: ALBUMIN 3.7 GM/DL (3.2-4.5); BILIRUBIN,TOTAL 0.4 MG/DL (0.1-1.0); CALCIUM 8.8 MG/DL (8.5-10.1); CREATININE SERUM 0.96 MG/DL (0.60-1.30); POTASSIUM 3.9 MMOL/L (3.6-5.0); TOTAL PROTEIN 6.6 GM/DL (6.4-8.2)
[2020-09-24 15:37] LABS: BASOPHILS % (AUTO) 0 % (0-10); EOSINOPHILS # (AUTO) 0.1 10^3/uL (0.0-0.3); EOSINOPHILS % (AUTO) 2 % (0-10); HEMATOCRIT 37 % (35-52); HEMOGLOBIN 12.3 g/dL (11.5-16.0); LYMPHOCYTES # (AUTO) 0.9 10^3/uL (1.0-4.0); LYMPHOCYTES % (AUTO) 18 % (12-44); MEAN CORPUSCULAR HEMOGLOBIN 33 pg (25-34); MEAN CORPUSCULAR HGB CONC 33 g/dL (32-36); MEAN CORPUSCULAR VOLUME 100 fL (80-99); MEAN PLATELET VOLUME 9.5 fL (9.0-12.2); MONOCYTES # (AUTO) 0.5 10^3/uL (0.0-1.0); MONOCYTES % (AUTO) 8 % (0-12); NEUTROPHILS # (AUTO) 3.8 10^3/uL (1.8-7.8); NEUTROPHILS % (AUTO) 71 % (42-75); PLATELET COUNT 193 10^3/uL (130-400); WHITE BLOOD COUNT 5.4 10^3/uL (4.3-11.0)
[2020-09-24 15:44] LABS: ALBUMIN 3.7 GM/DL (3.2-4.5); BILIRUBIN,TOTAL 0.5 MG/DL (0.1-1.0); CALCIUM 8.9 MG/DL (8.5-10.1); CREATININE SERUM 0.93 MG/DL (0.60-1.30); TOTAL PROTEIN 6.6 GM/DL (6.4-8.2)
[2020-10-15 15:06] LABS: BASOPHILS % (AUTO) 0 % (0-10); EOSINOPHILS # (AUTO) 0.1 10^3/uL (0.0-0.3); EOSINOPHILS % (AUTO) 3 % (0-10); HEMATOCRIT 36 % (35-52); HEMOGLOBIN 12.2 g/dL (11.5-16.0); LYMPHOCYTES % (AUTO) 23 % (12-44); MEAN CORPUSCULAR HEMOGLOBIN 34 pg (25-34); MEAN CORPUSCULAR HGB CONC 34 g/dL (32-36); MEAN CORPUSCULAR VOLUME 100 fL (80-99); MEAN PLATELET VOLUME 8.8 fL (9.0-12.2); MONOCYTES # (AUTO) 0.4 10^3/uL (0.0-1.0); MONOCYTES % (AUTO) 9 % (0-12); NEUTROPHILS # (AUTO) 2.8 10^3/uL (1.8-7.8); NEUTROPHILS % (AUTO) 64 % (42-75); PLATELET COUNT 221 10^3/uL (130-400); WHITE BLOOD COUNT 4.5 10^3/uL (4.3-11.0)
[2020-10-15 15:31] LABS: ALANINE AMINOTRANSFERASE 11 U/L (0-55); ALBUMIN 3.5 GM/DL (3.2-4.5); ALKALINE PHOSPHATASE 118 U/L (40-136); BILIRUBIN,TOTAL 0.4 MG/DL (0.1-1.0); BUN/CREATININE RATIO 15; CALCIUM 8.4 MG/DL (8.5-10.1); CARBON DIOXIDE 24 MMOL/L (21-32); CHLORIDE 111 MMOL/L (98-107); CREATININE SERUM 0.84 MG/DL (0.60-1.30); GFR ESTIMATED > 60; GLUCOSE 151 MG/DL (70-105); POTASSIUM 3.2 MMOL/L (3.6-5.0); SODIUM 144 MMOL/L (135-145); TOTAL PROTEIN 6.3 GM/DL (6.4-8.2)
== END 2020-11-03 | disposition home or self-care (01) ==
LOC: ONC 14:34
PROVIDERS: ATTEND Internal Medicine Hematology & Oncology
DX: Z51.11 Encounter for antineoplastic chemotherapy (principal); C20 Malignant neoplasm of rectum; C78.7 Secondary malignant neoplasm of liver and intrahepatic bile duct; I82.402 Acute embolism and thrombosis of unspecified deep veins of left lower extremity; Z93.3 Colostomy status; Z92.21 Personal history of antineoplastic chemotherapy; Z79.899 Other long term (current) drug therapy; Z92.3 Personal history of irradiation; Z85.038 Personal history of other malignant neoplasm of large intestine
CPT/HCPCS: 36591; 80053; 82378; 85025

== ENCOUNTER 2021-02-05 13:52 | Outpatient (RCR) | payer MEDICARE, OTHER ==
[2020-11-12 10:58] LABS: BASOPHILS % (AUTO) 1 % (0-10); EOSINOPHILS # (AUTO) 0.1 10^3/uL (0.0-0.3); EOSINOPHILS % (AUTO) 2 % (0-10); HEMATOCRIT 36 % (35-52); HEMOGLOBIN 11.9 g/dL (11.5-16.0); LYMPHOCYTES # (AUTO) 1.1 10^3/uL (1.0-4.0); LYMPHOCYTES % (AUTO) 28 % (12-44); MEAN CORPUSCULAR HEMOGLOBIN 34 pg (25-34); MEAN CORPUSCULAR HGB CONC 33 g/dL (32-36); MEAN CORPUSCULAR VOLUME 102 fL (80-99); MEAN PLATELET VOLUME 8.7 fL (9.0-12.2); MONOCYTES # (AUTO) 0.4 10^3/uL (0.0-1.0); MONOCYTES % (AUTO) 9 % (0-12); NEUTROPHILS # (AUTO) 2.4 10^3/uL (1.8-7.8); NEUTROPHILS % (AUTO) 61 % (42-75); PLATELET COUNT 229 10^3/uL (130-400); WHITE BLOOD COUNT 3.9 10^3/uL (4.3-11.0)
[2020-11-12 11:25] LABS: ALANINE AMINOTRANSFERASE 13 U/L (0-55); ALBUMIN 3.6 GM/DL (3.2-4.5); ALKALINE PHOSPHATASE 126 U/L (40-136); BILIRUBIN,TOTAL 0.3 MG/DL (0.1-1.0); BUN/CREATININE RATIO 23; CALCIUM 8.9 MG/DL (8.5-10.1); CARBON DIOXIDE 25 MMOL/L (21-32); CHLORIDE 109 MMOL/L (98-107); CREATININE SERUM 0.84 MG/DL (0.60-1.30); GFR ESTIMATED > 60; GLUCOSE 96 MG/DL (70-105); SODIUM 142 MMOL/L (135-145); TOTAL PROTEIN 6.4 GM/DL (6.4-8.2)
[2020-11-26 15:05] LABS: BASOPHILS % (AUTO) 0 % (0-10); EOSINOPHILS # (AUTO) 0.1 10^3/uL (0.0-0.3); EOSINOPHILS % (AUTO) 2 % (0-10); HEMATOCRIT 38 % (35-52); HEMOGLOBIN 12.7 g/dL (11.5-16.0); LYMPHOCYTES # (AUTO) 1.2 10^3/uL (1.0-4.0); LYMPHOCYTES % (AUTO) 19 % (12-44); MEAN CORPUSCULAR HEMOGLOBIN 35 pg (25-34); MEAN CORPUSCULAR HGB CONC 34 g/dL (32-36); MEAN CORPUSCULAR VOLUME 103 fL (80-99); MEAN PLATELET VOLUME 9.3 fL (9.0-12.2); MONOCYTES # (AUTO) 0.5 10^3/uL (0.0-1.0); MONOCYTES % (AUTO) 8 % (0-12); NEUTROPHILS # (AUTO) 4.4 10^3/uL (1.8-7.8); NEUTROPHILS % (AUTO) 71 % (42-75); PLATELET COUNT 229 10^3/uL (130-400); WHITE BLOOD COUNT 6.2 10^3/uL (4.3-11.0)
[2020-11-26 15:29] LABS: ALANINE AMINOTRANSFERASE 11 U/L (0-55); ALBUMIN 3.9 GM/DL (3.2-4.5); ALKALINE PHOSPHATASE 130 U/L (40-136); BILIRUBIN,TOTAL 0.6 MG/DL (0.1-1.0); BUN/CREATININE RATIO 19; CALCIUM 9.5 MG/DL (8.5-10.1); CARBON DIOXIDE 27 MMOL/L (21-32); CHLORIDE 107 MMOL/L (98-107); CREATININE SERUM 0.89 MG/DL (0.60-1.30); GFR ESTIMATED > 60; GLUCOSE 115 MG/DL (70-105); MAGNESIUM 2.1 MG/DL (1.6-2.4); SODIUM 141 MMOL/L (135-145); TOTAL PROTEIN 7.1 GM/DL (6.4-8.2)
[2020-12-10 14:38] LABS: BASOPHILS % (AUTO) 1 % (0-10); EOSINOPHILS # (AUTO) 0.1 10^3/uL (0.0-0.3); EOSINOPHILS % (AUTO) 2 % (0-10); HEMATOCRIT 38 % (35-52); HEMOGLOBIN 12.7 g/dL (11.5-16.0); LYMPHOCYTES # (AUTO) 1.2 10^3/uL (1.0-4.0); LYMPHOCYTES % (AUTO) 21 % (12-44); MEAN CORPUSCULAR HEMOGLOBIN 34 pg (25-34); MEAN CORPUSCULAR HGB CONC 34 g/dL (32-36); MEAN CORPUSCULAR VOLUME 100 fL (80-99); MEAN PLATELET VOLUME 9.3 fL (9.0-12.2); MONOCYTES # (AUTO) 0.4 10^3/uL (0.0-1.0); MONOCYTES % (AUTO) 7 % (0-12); NEUTROPHILS # (AUTO) 4.1 10^3/uL (1.8-7.8); NEUTROPHILS % (AUTO) 69 % (42-75); PLATELET COUNT 255 10^3/uL (130-400); WHITE BLOOD COUNT 5.9 10^3/uL (4.3-11.0)
[2020-12-10 14:58] LABS: ALANINE AMINOTRANSFERASE 13 U/L (0-55); ALBUMIN 3.8 GM/DL (3.2-4.5); ALKALINE PHOSPHATASE 120 U/L (40-136); BILIRUBIN,TOTAL 0.5 MG/DL (0.1-1.0); BUN/CREATININE RATIO 13; CARBON DIOXIDE 27 MMOL/L (21-32); CHLORIDE 109 MMOL/L (98-107); CREATININE SERUM 0.76 MG/DL (0.60-1.30); GFR ESTIMATED > 60; GLUCOSE 136 MG/DL (70-105); MAGNESIUM 2.1 MG/DL (1.6-2.4); POTASSIUM 3.5 MMOL/L (3.6-5.0); SODIUM 144 MMOL/L (135-145); TOTAL PROTEIN 6.7 GM/DL (6.4-8.2)
[2020-12-25 10:26] LABS: BASOPHILS % (AUTO) 1 % (0-10); EOSINOPHILS # (AUTO) 0.1 10^3/uL (0.0-0.3); EOSINOPHILS % (AUTO) 3 % (0-10); HEMATOCRIT 40 % (35-52); HEMOGLOBIN 12.8 g/dL (11.5-16.0); LYMPHOCYTES % (AUTO) 26 % (12-44); MEAN CORPUSCULAR HEMOGLOBIN 33 pg (25-34); MEAN CORPUSCULAR HGB CONC 32 g/dL (32-36); MEAN CORPUSCULAR VOLUME 102 fL (80-99); MEAN PLATELET VOLUME 9.4 fL (9.0-12.2); MONOCYTES # (AUTO) 0.3 10^3/uL (0.0-1.0); MONOCYTES % (AUTO) 8 % (0-12); NEUTROPHILS # (AUTO) 2.5 10^3/uL (1.8-7.8); NEUTROPHILS % (AUTO) 62 % (42-75); PLATELET COUNT 271 10^3/uL (130-400); WHITE BLOOD COUNT 4.1 10^3/uL (4.3-11.0)
[2020-12-25 10:43] LABS: ALANINE AMINOTRANSFERASE 9 U/L (0-55); ALBUMIN 3.6 GM/DL (3.2-4.5); ALKALINE PHOSPHATASE 115 U/L (40-136); BILIRUBIN,TOTAL 0.4 MG/DL (0.1-1.0); BUN/CREATININE RATIO 18; CALCIUM 8.9 MG/DL (8.5-10.1); CARBON DIOXIDE 30 MMOL/L (21-32); CHLORIDE 106 MMOL/L (98-107); CREATININE SERUM 0.76 MG/DL (0.60-1.30); GFR ESTIMATED > 60; GLUCOSE 102 MG/DL (70-105); MAGNESIUM 2.1 MG/DL (1.6-2.4); SODIUM 141 MMOL/L (135-145); TOTAL PROTEIN 6.4 GM/DL (6.4-8.2)
[2021-01-08 15:01] LABS: BASOPHILS % (AUTO) 0 % (0-10); EOSINOPHILS # (AUTO) 0.2 10^3/uL (0.0-0.3); EOSINOPHILS % (AUTO) 4 % (0-10); HEMATOCRIT 39 % (35-52); HEMOGLOBIN 13.2 g/dL (11.5-16.0); LYMPHOCYTES # (AUTO) 1.2 10^3/uL (1.0-4.0); LYMPHOCYTES % (AUTO) 20 % (12-44); MEAN CORPUSCULAR HEMOGLOBIN 33 pg (25-34); MEAN CORPUSCULAR HGB CONC 34 g/dL (32-36); MEAN CORPUSCULAR VOLUME 99 fL (80-99); MEAN PLATELET VOLUME 9.2 fL (9.0-12.2); MONOCYTES # (AUTO) 0.5 10^3/uL (0.0-1.0); MONOCYTES % (AUTO) 9 % (0-12); NEUTROPHILS # (AUTO) 3.9 10^3/uL (1.8-7.8); NEUTROPHILS % (AUTO) 67 % (42-75); PLATELET COUNT 280 10^3/uL (130-400); WHITE BLOOD COUNT 5.7 10^3/uL (4.3-11.0)
[2021-01-08 15:22] LABS: ALANINE AMINOTRANSFERASE 19 U/L (0-55); ALBUMIN 3.6 GM/DL (3.2-4.5); ALKALINE PHOSPHATASE 112 U/L (40-136); BILIRUBIN,TOTAL 0.4 MG/DL (0.1-1.0); BUN/CREATININE RATIO 16; CALCIUM 9.1 MG/DL (8.5-10.1); CARBON DIOXIDE 29 MMOL/L (21-32); CHLORIDE 108 MMOL/L (98-107); CREATININE SERUM 0.77 MG/DL (0.60-1.30); GFR ESTIMATED > 60; GLUCOSE 122 MG/DL (70-105); MAGNESIUM 1.9 MG/DL (1.6-2.4); POTASSIUM 3.5 MMOL/L (3.6-5.0); SODIUM 143 MMOL/L (135-145); TOTAL PROTEIN 7.1 GM/DL (6.4-8.2)
[2021-01-22 14:45] LABS: BASOPHILS % (AUTO) 1 % (0-10); EOSINOPHILS # (AUTO) 0.2 10^3/uL (0.0-0.3); EOSINOPHILS % (AUTO) 3 % (0-10); HEMATOCRIT 40 % (35-52); HEMOGLOBIN 13.1 g/dL (11.5-16.0); LYMPHOCYTES # (AUTO) 1.2 10^3/uL (1.0-4.0); LYMPHOCYTES % (AUTO) 19 % (12-44); MEAN CORPUSCULAR HEMOGLOBIN 32 pg (25-34); MEAN CORPUSCULAR HGB CONC 33 g/dL (32-36); MEAN CORPUSCULAR VOLUME 97 fL (80-99); MEAN PLATELET VOLUME 9.4 fL (9.0-12.2); MONOCYTES # (AUTO) 0.4 10^3/uL (0.0-1.0); MONOCYTES % (AUTO) 6 % (0-12); NEUTROPHILS # (AUTO) 4.4 10^3/uL (1.8-7.8); NEUTROPHILS % (AUTO) 71 % (42-75); PLATELET COUNT 280 10^3/uL (130-400); WHITE BLOOD COUNT 6.2 10^3/uL (4.3-11.0)
[2021-01-22 15:19] LABS: ALANINE AMINOTRANSFERASE 10 U/L (0-55); ALBUMIN 3.5 GM/DL (3.2-4.5); ALKALINE PHOSPHATASE 123 U/L (40-136); BILIRUBIN,TOTAL 0.4 MG/DL (0.1-1.0); BUN/CREATININE RATIO 11; CALCIUM 8.6 MG/DL (8.5-10.1); CARBON DIOXIDE 27 MMOL/L (21-32); CHLORIDE 109 MMOL/L (98-107); CREATININE SERUM 0.71 MG/DL (0.60-1.30); GFR ESTIMATED > 60; GLUCOSE 129 MG/DL (70-105); MAGNESIUM 1.7 MG/DL (1.6-2.4); POTASSIUM 3.3 MMOL/L (3.6-5.0); SODIUM 143 MMOL/L (135-145); TOTAL PROTEIN 6.2 GM/DL (6.4-8.2)
[~2021-02-05] VITALS: Ht 156.2 cm; Wt 65.3 kg
[~2021-02-05 13:52] MED LIST changes: +NS IV 1000 ML (CANCER CTR) IV SCH; +NS IV SCH; -OMEP40CA27 PO; +OMEP40CA6 PO; +PANITUMUMAB IV SCH
[2021-02-05 14:18] LABS: BASOPHILS % (AUTO) 0 % (0-10); EOSINOPHILS # (AUTO) 0.2 10^3/uL (0.0-0.3); EOSINOPHILS % (AUTO) 3 % (0-10); HEMATOCRIT 41 % (35-52); HEMOGLOBIN 13.2 g/dL (11.5-16.0); LYMPHOCYTES # (AUTO) 1.4 10^3/uL (1.0-4.0); LYMPHOCYTES % (AUTO) 26 % (12-44); MEAN CORPUSCULAR HEMOGLOBIN 31 pg (25-34); MEAN CORPUSCULAR HGB CONC 32 g/dL (32-36); MEAN CORPUSCULAR VOLUME 97 fL (80-99); MEAN PLATELET VOLUME 9.4 fL (9.0-12.2); MONOCYTES # (AUTO) 0.4 10^3/uL (0.0-1.0); MONOCYTES % (AUTO) 8 % (0-12); NEUTROPHILS # (AUTO) 3.4 10^3/uL (1.8-7.8); NEUTROPHILS % (AUTO) 62 % (42-75); PLATELET COUNT 262 10^3/uL (130-400); WHITE BLOOD COUNT 5.5 10^3/uL (4.3-11.0)
[2021-02-05 14:41] LABS: ALANINE AMINOTRANSFERASE 13 U/L (0-55); ALBUMIN 3.7 GM/DL (3.2-4.5); ALKALINE PHOSPHATASE 124 U/L (40-136); BILIRUBIN,TOTAL 0.5 MG/DL (0.1-1.0); BUN/CREATININE RATIO 13; CALCIUM 9.3 MG/DL (8.5-10.1); CARBON DIOXIDE 28 MMOL/L (21-32); CHLORIDE 111 MMOL/L (98-107); CREATININE SERUM 0.67 MG/DL (0.60-1.30); GFR ESTIMATED > 60; GLUCOSE 96 MG/DL (70-105); MAGNESIUM 1.6 MG/DL (1.6-2.4); POTASSIUM 3.4 MMOL/L (3.6-5.0); SODIUM 145 MMOL/L (135-145); TOTAL PROTEIN 6.5 GM/DL (6.4-8.2)
== END 2021-02-10 | disposition home or self-care (01) ==
LOC: ONC 13:52
PROVIDERS: ATTEND Internal Medicine Hematology & Oncology
DX: Z51.11 Encounter for antineoplastic chemotherapy (principal); C20 Malignant neoplasm of rectum; C78.7 Secondary malignant neoplasm of liver and intrahepatic bile duct; I82.402 Acute embolism and thrombosis of unspecified deep veins of left lower extremity; Z93.3 Colostomy status; Z92.21 Personal history of antineoplastic chemotherapy; Z79.899 Other long term (current) drug therapy; Z92.3 Personal history of irradiation; Z85.038 Personal history of other malignant neoplasm of large intestine
CPT/HCPCS: 80053; 82378; 85025; G0463; 36591; 83735; 96413

== ENCOUNTER → 2021-02-17 | Outpatient (CLI) | payer MEDICARE, OTHER ==
[~2021-02-17] MED LIST changes: +BARIUM SUSPENSION 2.1% (VANILLA SILQ) 450 ML PO ONE; +CATHETER FLUSH 10 ML SYR IV PRN; +HOLD METFORMIN - RECEIVED CONTRAST 20 ML VIAL IV SCH; +IOHEXOL 350 MG/ML 100 ML (OMNIPAQUE 350) VIAL IV ONE; +NS 100 ML (IVPB) BAG IV ONE; -NS IV 1000 ML (CANCER CTR) IV SCH; -NS IV SCH; -PANITUMUMAB IV SCH
--- NOTE | 2021-02-17 11:40 | Diagnostic Imaging Report ---
PROCEDURE: CT chest with contrast, CT abdomen and pelvis with and without contrast. TECHNIQUE: Pre and post intravenous contrast axial imaging of the abdomen and pelvis and post contrast axial imaging of the chest were performed. Auto Exposure Controls were utilized during the CT exam to meet ALARA standards for radiation dose reduction. INDICATION: Rectal cancer. Compared with a CT chest, abdomen and pelvis performed 02/09/2020. CHEST: No pulmonary nodule or suspicious lung mass. No evidence for edema, pneumonia or effusion. No pleural or chest wall lesion. Mild enlargement of the heart is unchanged. No hilar mediastinal or axillary lymphadenopathy. The atherosclerotic aorta is patent and nonaneurysmal and nonacute. Bulky hypertrophic vertebral body endplate osteophytes chronic and degenerative. ABDOMEN AND PELVIS: Lesion in the posterior right hepatic lobe of the dome posteriorly low in density but somewhat heterogeneous, showed no convincing enhancement or change following contrast and measures 4.0 x 3.2 cm, previously 4.4 x 3.7 cm. No new liver mass is found and there is no bile duct dilatation. The gallbladder appeared normal. Tiny 2 to 3 mm cyst in the caudal right hepatic lobe unchanged. Some sludge or debris within the gallbladder lumen but no dense stone. No findings of cholecystitis. Spleen, adrenals and pancreas appeared unremarkable. The atherosclerotic aorta patent and nonaneurysmal. The unobstructed kidneys appeared normal. The left paraumbilical diverting ostomy is chronic. No abdominal, pelvic, mesenteric or retroperitoneal adenopathy. No ascites. No omental infiltration. The pelvic sidewalls and ilioinguinal lymph node chains unremarkable. There are chronic degenerative changes to the spine and bony pelvis. IMPRESSION: CHEST: Stable chest, no evidence for thoracic metastasis. ABDOMEN AND PELVIS: Right lobe liver mass measures smaller than on prior. No new liver lesion or adverse development. No lymphadenopathy or obstructive phenomena. Dictated by: Dictated on workstation # [id number]
== END ==
LOC: RAD 09:29
PROVIDERS: ATTEND Nurse Practitioner Adult Health
DX: C20 Malignant neoplasm of rectum (principal); C78.7 Secondary malignant neoplasm of liver and intrahepatic bile duct
CPT/HCPCS: 71260; 74178

== ENCOUNTER → 2021-02-19 | Outpatient (CLI) | payer MEDICARE, OTHER ==
[~2021-02-19] MED LIST changes: -BARIUM SUSPENSION 2.1% (VANILLA SILQ) 450 ML PO ONE; -CATHETER FLUSH 10 ML SYR IV PRN; -HOLD METFORMIN - RECEIVED CONTRAST 20 ML VIAL IV SCH; -IOHEXOL 350 MG/ML 100 ML (OMNIPAQUE 350) VIAL IV ONE; -NS 100 ML (IVPB) BAG IV ONE
[2021-02-19 10:24] LABS: CHOLESTEROL 162 MG/DL (< 200); HDL CHOLESTEROL 45 MG/DL (40-60); TRIGLYCERIDES 122 MG/DL (<150); VLDL CHOLESTEROL 24 MG/DL (5-40)
== END ==
LOC: LAB 09:44
PROVIDERS: ATTEND Nurse Practitioner
DX: I10 Essential (primary) hypertension (principal)
CPT/HCPCS: 36415; 80061

== ENCOUNTER → 2021-05-12 | Outpatient (CLI) | payer MEDICARE, OTHER ==
[~2021-05-12] MED LIST changes: +CATHETER FLUSH 10 ML SYR IV PRN; -ENOX30DI9 SQ; +ENXP30I.3 SQ; +HOLD METFORMIN - RECEIVED CONTRAST 20 ML VIAL IV SCH; +IOHEXOL 350 MG/ML 100 ML (OMNIPAQUE 350) VIAL IV ONE; +NS 100 ML (IVPB) BAG IV ONE
--- NOTE | 2021-05-12 14:49 | Diagnostic Imaging Report ---
EXAMINATION: CT chest with intravenous contrast, CT abdomen and pelvis without and with intravenous contrast. TECHNIQUE: Pre and post intravenous contrast axial imaging of the abdomen and pelvis and post contrast axial imaging of the chest were performed. All CT scans use one or more of the following dose optimizing techniques: automated exposure control, MA and/or KvP adjustment based on patient size and exam type or iterative reconstruction. HISTORY: Rectal cancer COMPARISON: 02/17/2021 FINDINGS: There is no edema or pneumonia. No pleural effusion. No pneumothorax. No suspicious nodules. There is no axillary or supraclavicular lymphadenopathy. There is no mediastinal lymphadenopathy. Right-sided Port-A-Cath is present. Heart size is normal. There are mild coronary artery calcifications. No pericardial effusion. Aorta is normal in caliber. There is a stable 3.3 x 4.0 cm segment seven liver mass. No other masses seen. There is a stable indeterminate 3 mm lesion in the lower portion of segment six of the liver which is indeterminate. There is no biliary ductal dilation. There are no stones or sludge in the gallbladder. Pancreas is normal. Spleen is normal. Adrenal glands are normal. The kidneys are normal. There is no hydronephrosis. Urinary bladder is normal. Visualized bowel is normal in caliber without obstruction or inflammation. There is a rectal resection. There is left lower quadrant ostomy. No free fluid or air. No abdominal or pelvic lymphadenopathy. Aorta is normal in caliber without aneurysm. There are no suspicious osseus lesions. IMPRESSION: 1. Stable liver lesion, no new metastatic disease seen in the abdomen or pelvis. 2. No metastatic disease seen in the chest. Dictated by: Dictated on workstation # [id number]
== END ==
LOC: RAD 12:45
PROVIDERS: ATTEND Nurse Practitioner Adult Health
DX: C20 Malignant neoplasm of rectum (principal); C78.7 Secondary malignant neoplasm of liver and intrahepatic bile duct
CPT/HCPCS: 71260; 74178

== ENCOUNTER 2021-05-14 09:32 | Outpatient (RCR) | payer MEDICARE, OTHER ==
[2021-02-19 09:59] LABS: BASOPHILS % (AUTO) 0 % (0-10); EOSINOPHILS # (AUTO) 0.2 10^3/uL (0.0-0.3); EOSINOPHILS % (AUTO) 4 % (0-10); HEMATOCRIT 41 % (35-52); HEMOGLOBIN 13.1 g/dL (11.5-16.0); LYMPHOCYTES # (AUTO) 1.3 10^3/uL (1.0-4.0); LYMPHOCYTES % (AUTO) 27 % (12-44); MEAN CORPUSCULAR HEMOGLOBIN 31 pg (25-34); MEAN CORPUSCULAR HGB CONC 32 g/dL (32-36); MEAN CORPUSCULAR VOLUME 96 fL (80-99); MEAN PLATELET VOLUME 9.4 fL (9.0-12.2); MONOCYTES # (AUTO) 0.4 10^3/uL (0.0-1.0); MONOCYTES % (AUTO) 9 % (0-12); NEUTROPHILS # (AUTO) 2.9 10^3/uL (1.8-7.8); NEUTROPHILS % (AUTO) 60 % (42-75); PLATELET COUNT 253 10^3/uL (130-400); WHITE BLOOD COUNT 4.8 10^3/uL (4.3-11.0)
[2021-02-19 10:26] LABS: ALANINE AMINOTRANSFERASE 9 U/L (0-55); ALBUMIN 3.5 GM/DL (3.2-4.5); ALKALINE PHOSPHATASE 124 U/L (40-136); BILIRUBIN,TOTAL 0.5 MG/DL (0.1-1.0); BUN/CREATININE RATIO 17; CALCIUM 8.7 MG/DL (8.5-10.1); CARBON DIOXIDE 26 MMOL/L (21-32); CHLORIDE 109 MMOL/L (98-107); CREATININE SERUM 0.71 MG/DL (0.60-1.30); GFR ESTIMATED > 60; GLUCOSE 103 MG/DL (70-105); MAGNESIUM 1.4 MG/DL (1.6-2.4); POTASSIUM 3.9 MMOL/L (3.6-5.0); SODIUM 143 MMOL/L (135-145); TOTAL PROTEIN 6.3 GM/DL (6.4-8.2)
[2021-03-19 10:14] LABS: BASOPHILS % (AUTO) 1 % (0-10); EOSINOPHILS # (AUTO) 0.2 10^3/uL (0.0-0.3); EOSINOPHILS % (AUTO) 3 % (0-10); HEMATOCRIT 40 % (35-52); HEMOGLOBIN 13.1 g/dL (11.5-16.0); LYMPHOCYTES # (AUTO) 1.1 10^3/uL (1.0-4.0); LYMPHOCYTES % (AUTO) 22 % (12-44); MEAN CORPUSCULAR HEMOGLOBIN 31 pg (25-34); MEAN CORPUSCULAR HGB CONC 33 g/dL (32-36); MEAN CORPUSCULAR VOLUME 94 fL (80-99); MEAN PLATELET VOLUME 9.5 fL (9.0-12.2); MONOCYTES # (AUTO) 0.5 10^3/uL (0.0-1.0); MONOCYTES % (AUTO) 9 % (0-12); NEUTROPHILS # (AUTO) 3.5 10^3/uL (1.8-7.8); NEUTROPHILS % (AUTO) 66 % (42-75); PLATELET COUNT 252 10^3/uL (130-400); WHITE BLOOD COUNT 5.3 10^3/uL (4.3-11.0)
[2021-03-19 10:35] LABS: ALBUMIN 3.6 GM/DL (3.2-4.5); BILIRUBIN,TOTAL 0.5 MG/DL (0.1-1.0); CALCIUM 9.2 MG/DL (8.5-10.1); CREATININE SERUM 0.71 MG/DL (0.60-1.30); MAGNESIUM 1.6 MG/DL (1.6-2.4); POTASSIUM 3.7 MMOL/L (3.6-5.0); TOTAL PROTEIN 6.3 GM/DL (6.4-8.2)
[2021-04-16 15:01] LABS: BASOPHILS % (AUTO) 0 % (0-10); EOSINOPHILS # (AUTO) 0.2 10^3/uL (0.0-0.3); EOSINOPHILS % (AUTO) 3 % (0-10); HEMATOCRIT 40 % (35-52); LYMPHOCYTES # (AUTO) 1.5 10^3/uL (1.0-4.0); LYMPHOCYTES % (AUTO) 27 % (12-44); MEAN CORPUSCULAR HEMOGLOBIN 31 pg (25-34); MEAN CORPUSCULAR HGB CONC 33 g/dL (32-36); MEAN CORPUSCULAR VOLUME 93 fL (80-99); MEAN PLATELET VOLUME 9.5 fL (9.0-12.2); MONOCYTES # (AUTO) 0.4 10^3/uL (0.0-1.0); MONOCYTES % (AUTO) 8 % (0-12); NEUTROPHILS # (AUTO) 3.3 10^3/uL (1.8-7.8); NEUTROPHILS % (AUTO) 61 % (42-75); PLATELET COUNT 270 10^3/uL (130-400); WHITE BLOOD COUNT 5.4 10^3/uL (4.3-11.0)
[2021-04-16 15:21] LABS: ALBUMIN 3.6 GM/DL (3.2-4.5); BILIRUBIN,TOTAL 0.5 MG/DL (0.1-1.0); CREATININE SERUM 0.69 MG/DL (0.60-1.30); MAGNESIUM 1.4 MG/DL (1.6-2.4); POTASSIUM 3.7 MMOL/L (3.6-5.0); TOTAL PROTEIN 6.3 GM/DL (6.4-8.2)
[~2021-05-14 09:32] MED LIST changes: -CATHETER FLUSH 10 ML SYR IV PRN; -HOLD METFORMIN - RECEIVED CONTRAST 20 ML VIAL IV SCH; -IOHEXOL 350 MG/ML 100 ML (OMNIPAQUE 350) VIAL IV ONE; +NS (IVPB) CANCER CENTER 250 ML ONE; -NS 100 ML (IVPB) BAG IV ONE; +NS IV 1000 ML (CANCER CTR) IV SCH; +NS IV SCH; +PANITUMUMAB IV SCH
[2021-05-14 09:54] LABS: BASOPHILS % (AUTO) 1 % (0-10); EOSINOPHILS # (AUTO) 0.2 10^3/uL (0.0-0.3); EOSINOPHILS % (AUTO) 4 % (0-10); HEMATOCRIT 41 % (35-52); HEMOGLOBIN 13.3 g/dL (11.5-16.0); LYMPHOCYTES # (AUTO) 1.3 10^3/uL (1.0-4.0); LYMPHOCYTES % (AUTO) 25 % (12-44); MEAN CORPUSCULAR HEMOGLOBIN 31 pg (25-34); MEAN CORPUSCULAR HGB CONC 33 g/dL (32-36); MEAN CORPUSCULAR VOLUME 96 fL (80-99); MEAN PLATELET VOLUME 9.2 fL (9.0-12.2); MONOCYTES # (AUTO) 0.5 10^3/uL (0.0-1.0); MONOCYTES % (AUTO) 9 % (0-12); NEUTROPHILS # (AUTO) 3.2 10^3/uL (1.8-7.8); NEUTROPHILS % (AUTO) 62 % (42-75); PLATELET COUNT 277 10^3/uL (130-400); WHITE BLOOD COUNT 5.2 10^3/uL (4.3-11.0)
[2021-05-14 10:14] LABS: ALBUMIN 3.5 GM/DL (3.2-4.5); BILIRUBIN,TOTAL 0.3 MG/DL (0.1-1.0); CALCIUM 8.6 MG/DL (8.5-10.1); CREATININE SERUM 0.68 MG/DL (0.60-1.30); MAGNESIUM 1.2 MG/DL (1.6-2.4); POTASSIUM 3.6 MMOL/L (3.6-5.0); TOTAL PROTEIN 6.2 GM/DL (6.4-8.2)
== END 2021-05-20 | disposition home or self-care (01) ==
LOC: ONC 09:32
PROVIDERS: ATTEND Internal Medicine Hematology & Oncology
DX: Z51.11 Encounter for antineoplastic chemotherapy (principal); C20 Malignant neoplasm of rectum; C78.7 Secondary malignant neoplasm of liver and intrahepatic bile duct; I82.402 Acute embolism and thrombosis of unspecified deep veins of left lower extremity; Z79.899 Other long term (current) drug therapy; Z85.038 Personal history of other malignant neoplasm of large intestine; Z92.3 Personal history of irradiation; Z90.89 Acquired absence of other organs
CPT/HCPCS: 80053; 82378; 83735; 85025; 96413; G0463; 36591

== ENCOUNTER 2021-07-29 09:30 | Outpatient (RCR) | payer MEDICARE, OTHER ==
[2021-06-18 10:57] LABS: BASOPHILS % (AUTO) 1 % (0-10); EOSINOPHILS # (AUTO) 0.2 10^3/uL (0.0-0.3); EOSINOPHILS % (AUTO) 4 % (0-10); HEMATOCRIT 38 % (35-52); HEMOGLOBIN 12.3 g/dL (11.5-16.0); LYMPHOCYTES # (AUTO) 1.3 10^3/uL (1.0-4.0); LYMPHOCYTES % (AUTO) 23 % (12-44); MEAN CORPUSCULAR HEMOGLOBIN 31 pg (25-34); MEAN CORPUSCULAR HGB CONC 33 g/dL (32-36); MEAN CORPUSCULAR VOLUME 96 fL (80-99); MEAN PLATELET VOLUME 9.3 fL (9.0-12.2); MONOCYTES # (AUTO) 0.5 10^3/uL (0.0-1.0); MONOCYTES % (AUTO) 10 % (0-12); NEUTROPHILS # (AUTO) 3.4 10^3/uL (1.8-7.8); NEUTROPHILS % (AUTO) 62 % (42-75); PLATELET COUNT 326 10^3/uL (130-400); WHITE BLOOD COUNT 5.4 10^3/uL (4.3-11.0)
[2021-06-18 11:20] LABS: ALBUMIN 3.5 GM/DL (3.2-4.5); BILIRUBIN,TOTAL 0.5 MG/DL (0.1-1.0); CALCIUM 8.8 MG/DL (8.5-10.1); CREATININE SERUM 0.74 MG/DL (0.60-1.30); POTASSIUM 4.1 MMOL/L (3.6-5.0); TOTAL PROTEIN 6.6 GM/DL (6.4-8.2)
[~2021-07-29 09:30] MED LIST changes: -BARIUM SUSPENSION 2.1% (VANILLA SILQ) 450 ML PO ONE; -CATHETER FLUSH 10 ML SYR IV PRN; -HOLD METFORMIN - RECEIVED CONTRAST 20 ML VIAL IV SCH; -IOHEXOL 350 MG/ML 100 ML (OMNIPAQUE 350) VIAL IV ONE; -NS 100 ML (IVPB) BAG IV ONE
[2021-07-29 10:17] LABS: CREATININE SERUM 0.8 MG/DL (0.60-1.30)
== END 2021-08-01 | disposition home or self-care (01) ==
LOC: ONC 09:30
PROVIDERS: ATTEND Internal Medicine Hematology & Oncology
DX: C20 Malignant neoplasm of rectum (principal); C78.7 Secondary malignant neoplasm of liver and intrahepatic bile duct; E66.9 Obesity, unspecified; Z79.899 Other long term (current) drug therapy; Z92.3 Personal history of irradiation; Z79.891 Long term (current) use of opiate analgesic; Z79.2 Long term (current) use of antibiotics; Z79.01 Long term (current) use of anticoagulants; Z68.26 Body mass index [BMI] 26.0-26.9, adult; Z86.718 Personal history of other venous thrombosis and embolism
CPT/HCPCS: 80053; 82378; 85025; G0463; 36591; 82565; 84520

== ENCOUNTER → 2021-07-29 | Outpatient (CLI) | payer MEDICARE, OTHER ==
[~2021-07-29] MED LIST changes: +BARIUM SUSPENSION 2.1% (VANILLA SILQ) 450 ML PO ONE; +CATHETER FLUSH 10 ML SYR IV PRN; +CYCL10TA25 PO; -CYCL10TA9 PO; +HOLD METFORMIN - RECEIVED CONTRAST 20 ML VIAL IV SCH; +IOHEXOL 350 MG/ML 100 ML (OMNIPAQUE 350) VIAL IV ONE; -NS (IVPB) CANCER CENTER 250 ML ONE; +NS 100 ML (IVPB) BAG IV ONE; -NS IV 1000 ML (CANCER CTR) IV SCH; -NS IV SCH; -PANITUMUMAB IV SCH
--- NOTE | 2021-07-29 12:02 | Diagnostic Imaging Report ---
PROCEDURE: CT chest, abdomen, and pelvis with contrast. TECHNIQUE: Multiple contiguous axial images were obtained through the chest, abdomen, and pelvis after the administration of intravenous contrast. Auto Exposure Controls were utilized during the CT exam to meet ALARA standards for radiation dose reduction. INDICATION: History of rectal cancer. Follow-up. COMPARISON: 05/12/2021. FINDINGS: CT CHEST: Evaluation of the lung hernandez demonstrates no suspicious pulmonary nodule or mass. Lungs are clear. There is no focal consolidation, large effusion, nor pneumothorax. Cardiomediastinal structures show mild cardiomegaly. There is small pericardial effusion. Small hiatal hernia is also noted. No pathologically enlarged or morphologically abnormal adenopathy is seen within the mediastinum, kisha, nor axilla. Scattered calcified aortic and coronary atherosclerosis is present. Osseous structures show no acute abnormalities. Age-related degenerative changes are noted. No new lytic or blastic bony lesions are seen. CT ABDOMEN: Heterogeneous relatively hypoenhancing area is again identified within the posterosuperior margins of segment VII of the liver. Area in question measures 3 x 3.6 cm on today's exam. This is slightly decreased in size compared to 3.2 x 3.8 cm previously. Correlation with history of ablation treatment to this area is advised. Additional area of punctate hypoenhancement is also identified within segment of the liver and measures approximately 3 mm in diameter. This is too small to adequately characterize based on this exam, but is stable compared to prior study. Note is made of filling defect within the lumen of the gallbladder, which may be on the basis of gallbladder sludge or gallstones. Gallbladder mass cannot be excluded based on this exam alone. There is no appreciable gallbladder wall thickening nor pericholecystic free fluid to suggest acute cholecystitis. The kidneys, adrenal glands, spleen, and pancreas have a normal CT appearance. Patient is status post previous partial distal colorectal resection. Ostomy site is identified in the left periumbilical region of the left lower abdominal quadrant. There is peristomal herniation of fat. Small bowel loops are nondistended. Normal appendix cannot be adequately identified, but there is no pericecal inflammation. There is no loculated fluid collection, free fluid, or free air within the abdomen. No abnormal mesenteric or retroperitoneal adenopathy is seen. Moderate scattered calcified aortic and arterial atherosclerosis is present. Osseous structures show no acute abnormalities. No new lytic or blastic osseous lesions are seen. CT PELVIS: Urinary bladder is grossly unremarkable. There is no loculated fluid collection, free fluid, or free air within the pelvis. No abnormal adenopathy is seen. Osseous structures show no acute abnormalities. IMPRESSION: 1. No evidence of recurrent or residual metastatic or malignant disease of the chest. No other acute cardiopulmonary process is seen. 2. Hypodense area within segment VII of the liver, which may correspond to ablation zone. Mass is also consideration. Overall, area of concern has decreased in size when compared to prior exam. 3. Cholelithiasis versus gallbladder sludge. Again, underlying gallbladder mass is not excluded based on this exam alone. There is no CT evidence of acute cholecystitis. 4. Other nonemergent findings as detailed above. Dictated by: Dictated on workstation # [id number]
== END ==
LOC: RAD 10:15
PROVIDERS: ATTEND Nurse Practitioner Adult Health
DX: C20 Malignant neoplasm of rectum (principal); C78.7 Secondary malignant neoplasm of liver and intrahepatic bile duct; I51.7 Cardiomegaly; K44.9 Diaphragmatic hernia without obstruction or gangrene; I25.10 Atherosclerotic heart disease of native coronary artery without angina pectoris; M81.0 Age-related osteoporosis without current pathological fracture
CPT/HCPCS: 71260; 74177

== ENCOUNTER 2021-08-06 08:54 | Outpatient (RCR) | payer MEDICARE, OTHER ==
[2021-08-06 10:08] LABS: BASOPHILS % (AUTO) 0 % (0-10); EOSINOPHILS # (AUTO) 0.1 10^3/uL (0.0-0.3); EOSINOPHILS % (AUTO) 2 % (0-10); HEMATOCRIT 38 % (35-52); HEMOGLOBIN 12.6 g/dL (11.5-16.0); LYMPHOCYTES # (AUTO) 1.1 10^3/uL (1.0-4.0); LYMPHOCYTES % (AUTO) 21 % (12-44); MEAN CORPUSCULAR HEMOGLOBIN 31 pg (25-34); MEAN CORPUSCULAR HGB CONC 33 g/dL (32-36); MEAN CORPUSCULAR VOLUME 94 fL (80-99); MEAN PLATELET VOLUME 9.1 fL (9.0-12.2); MONOCYTES # (AUTO) 0.4 10^3/uL (0.0-1.0); MONOCYTES % (AUTO) 8 % (0-12); NEUTROPHILS # (AUTO) 3.4 10^3/uL (1.8-7.8); NEUTROPHILS % (AUTO) 68 % (42-75); PLATELET COUNT 285 10^3/uL (130-400)
[2021-08-06 10:26] LABS: ALBUMIN 3.7 GM/DL (3.2-4.5); BILIRUBIN,TOTAL 0.5 MG/DL (0.1-1.0); CALCIUM 8.9 MG/DL (8.5-10.1); CREATININE SERUM 0.73 MG/DL (0.60-1.30); POTASSIUM 4.3 MMOL/L (3.6-5.0); TOTAL PROTEIN 6.6 GM/DL (6.4-8.2)
== END 2021-09-01 | disposition home or self-care (01) ==
LOC: ONC 08:54
PROVIDERS: ATTEND Internal Medicine Hematology & Oncology
DX: C20 Malignant neoplasm of rectum (principal); C78.7 Secondary malignant neoplasm of liver and intrahepatic bile duct; E66.9 Obesity, unspecified; Z79.899 Other long term (current) drug therapy; Z92.3 Personal history of irradiation; Z68.26 Body mass index [BMI] 26.0-26.9, adult; Z45.2 Encounter for adjustment and management of vascular access device
CPT/HCPCS: 80053; 82378; 85025; G0463; 36591; 99213

== ENCOUNTER 2023-01-04 07:25 | Outpatient (CLI) | payer MEDICARE, OTHER ==
[2023-01-04] VITALS (11 sets, daily range): BP systolic 107–153; BP diastolic 56–80
[2023-01-04] MEDS ORDERED: RIVA20TA PO (08:05)
[2023-01-04 08:06] LABS: HEMATOCRIT 36 % (35-52); HEMOGLOBIN 11.9 g/dL (11.5-16.0); MEAN CORPUSCULAR HEMOGLOBIN 35 pg (25-34); MEAN CORPUSCULAR HGB CONC 34 g/dL (32-36); MEAN CORPUSCULAR VOLUME 103 fL (80-99); PLATELET COUNT 213 10^3/uL (130-400)
[2023-01-04] MEDS ORDERED: NS IV 1000 ML 1,000 ML IV STA (08:22)
[2023-01-04] MEDS ORDERED: MIDAZOLAM 2 MG/2 ML (VERSED) VIAL IVP ONE (08:30)
[2023-01-04] MEDS ORDERED: fentaNYL INJ 100 MCG/2 ML AMP IVP ONE (08:30)
[2023-01-04] MEDS ORDERED: LIDOCAINE 1% INJ 10 ML VIAL INJ ONE (08:30)
[2023-01-04 08:42] LABS: PROTHROMBIN TIME PATIENT 13.7 SEC (12.2-14.7)
--- NOTE | 2023-01-04 10:15 | Pre-Op Note & Conscious Sedat ---
Pre-Operative Progress Note Date of Available H&P: Jan 04, 2023 Date H&P Reviewed: Jan 04, 2023 Time H&P Reviewed: 08:00 Pre-Op Diagnosis: liver mass Moderate Sedation PreProcedure Time 08:00 ASA Score 2 Airway Lungs Heart ASA score ASA 1: a normal healthy patient ASA 2: a patient with a mild systemic disease (mid diabetes, controlled hypertension, obesity ASA 3: a patient with a severe systemic disease that limits activity (angina, COPD, prior Myocardial infarction) ASA 4: a patient with an incapacitating disease that is a constant threat to life (CHF, renal failure) ASA 5: a moribund patient not expected to survive 24 hrs. (ruptured aneurysm) ASA 6: a declared brain- patient whose organs are being harvested. For emergent operations, add the letter E after the classification Mallampati Classification Grade 2 Sedation Plan Analgesia, Amnesia, Plan communicated to team members, Discussed options with patient/fam, Discussed risks with patient/fam The patient is an appropriate candidate to undergo the planned procedure, sedation, and anesthesia. The patient immediately re-assessed prior to indication. JUVENAL MARTÍNEZ MD Jan 04, 2023 10:15
--- NOTE | 2023-01-04 10:18 | Diagnostic Imaging Report ---
INDICATION: Liver mass. Patient presents for CT-guided biopsy. TECHNIQUE: All CT scans use one or more of the following dose optimizing techniques: automated exposure control, MA and/or KvP adjustment based on patient size and exam type or iterative reconstruction. The patient was brought to the CT suite placed on table in the supine position. Axial imaging through the abdomen was performed to evaluate appropriate entry site. A right abdomen was then prepped and draped in usual sterile fashion. Small amount of 1% lidocaine was utilized for local anesthesia. Procedure was performed utilizing conscious sedation with radiology nursing and constant patient monitoring. Patient was given a total of 50 mcg of Fentanyl intravenously and 1 mg of Versed intravenously. Multiple core biopsies were obtained of the dominant lesion in the dome of the right lobe the liver utilizing an 18-gauge coaxial Temno needle. Blood patch was injected during needle removal. Follow-up imaging shows no complicating features. Patient tolerated the procedure well and left Department in stable condition. IMPRESSION: Successful CT-guided biopsy of the dominant mass in the dome of the right lobe of the liver utilizing conscious sedation. Pathology results are currently pending. Dictated by: Dictated on workstation # [id number]
[2023-01-04] MEDS ORDERED: HYDROcodone/APAP 5 MG/325 MG (LORTAB) TAB PO PRN (10:30)
== END 2023-01-04 12:20 | disposition home or self-care (01) ==
LOC: SDC 07:25
PROVIDERS: ATTEND Internal Medicine Hematology & Oncology
DX: R16.0 Hepatomegaly, not elsewhere classified (principal)
CPT/HCPCS: 36415; 77012; 85027; 85610; 85730; 99156